=== PATIENT | male | born 1940 | race Caucasian/White ===

== ENCOUNTER 2016-04-14 19:56 | Inpatient (IN) | payer OTHER ==
[~2016-04-14] VITALS: Ht 175.3 cm; Wt 74.8 kg
[~2016-04-14 19:56] MED LIST: XALATAN 0.50 GTT/1 B OPH
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
--- NOTE | 2016-04-14 20:09 | NUR ---
Informed waiting has been performed.
--- NOTE | 2016-04-14 20:37 | NUR ---
PT UNDRESSED AND CHANGED INTO GOWN. PT HAD 6 LAYERS OF SWEATERS AND 4 PAIRS OF PANTS. PT ALSO HAD A ROPE AROUND HIS WAIST HOLDING NOTHING. CLOTHES WERE NO CLEAN AND HE SMELLS OF URINE. PT SKIN IS CLEAN DRY AND INTACT. HE HAS LUMPS ALL OVER HIS ARMS THAT LOOK LIKE LIPOMAS AND A BASEBALL SIZED MASS UNDER HIS LEFT AXILLA. PT ALSO HAS A PACE MAKER TO [facility].
--- NOTE | 2016-04-14 20:44 | NUR ---
STUDENT AT BEDSIDE TO EVAL PT. NO RECENT FEVERS OR COUGH.
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
--- NOTE | 2016-04-14 21:17 | NUR ---
WATTS PLACED. 500 CC'S YELLOW URINE OUT. 3 TUBES SENT TO LAB. EKG DONE AND SHOWN TO DR MANJARREZ. PT TO CT VIA STRTCHER
--- NOTE | 2016-04-14 21:50 | NUR ---
XRAY DONE. PT RETURNED TO ER ROOM 9 FROM XRAY VIA STRETCHER. BLOODS DRAWN STRAIGHT STICK:SST, LAV, BLUE, LA AND SENT TO LAB
--- NOTE | 2016-04-14 21:50 | RADIOLOGY REPORT ---
EXAMINATION: XR PORTABLE CHEST CLINICAL INFORMATION: Altered mental status. COMPARISON: 06/10/2014. TECHNIQUE: Portable AP view of the chest was obtained. FINDINGS: Lungs are hypoinflated, resulting in crowding of bronchovascular structures in the bases. There is no acute pulmonary edema, focal consolidation or pleural effusion. Cardiac silhouette is normal in size. There is a left pectoral region cardiac pacemaker/AICD with transvenous leads in stable position at the level of the right atrium and right ventricle. Thoracic aorta is calcified. The bones appear diffusely osteopenic. IMPRESSION: 1. The lungs are hypoinflated. 2. No evidence of pneumonia or congestive heart failure.
--- NOTE | 2016-04-14 21:50 | CT SCAN REPORT ---
EXAMINATION: CT HEAD WITHOUT CONTRAST CLINICAL INFORMATION: Altered mental status COMPARISON: 06/12/2011 TECHNIQUE: Contiguous axial imaging was performed from the skull base to vertex without intravenous administration of contrast. DLP: 600.71 mGy-cm FINDINGS: There is no evidence of acute intracranial hemorrhage or territorial infarction. No abnormal mass effect or midline shift is seen. Wolfe to white matter differentiation is well preserved. No extra-axial fluid collections are identified. The ventricles are normal in size. Moderate volume loss is noted. There is mild periventricular white matter hypoattenuation consistent with chronic small vessel ischemic disease. The osseous structures and soft tissues are normal. The mastoid air cells and visualized portions of the paranasal sinuses are well aerated. IMPRESSION: No acute intracranial pathology. Chronic small vessel ischemic disease and volume loss.
[2016-04-14 21:53] LABS: ABSOLUTE BASOPHIL COUNT 0 /CUMM (0.0-0.2); ABSOLUTE EOSINOPHIL COUNT 0.2 /CUMM (0.0-0.7); ABSOLUTE GRANULOCYTE CT 2.9 /CUMM (1.4-6.5); ABSOLUTE LYMPH COUNT 0.8 /CUMM (1.2-3.4); ABSOLUTE MONOCYTE COUNT 0.6 /CUMM (0.10-0.60); EOSINOPHIL % 3.7 % (0-5); GRANULOCYTE % 64.4 % (42.2-75.2); HEMATOCRIT 32.8 % (42-52); MEAN CORPUSCULAR HGB 31.2 PG (27.0-31.0); MEAN CORPUSCULAR HGB CONC 33.6 G/DL (33.0-37.0); MEAN CORPUSCULAR VOLUME 92.9 FL (80.0-94.0); PLATELET COUNT 198 /CUMM (130-400); RBC DISTRIBUTION WIDTH 14.4 % (11.5-14.5); RED BLOOD CELL CT 3.53 /CUMM (4.70-6.10); WHITE BLOOD CELL COUNT 4.6 /CUMM (4.8-10.8)
--- NOTE | 2016-04-14 23:00 | NUR ---
PT SLEEPING. FAMILY LEFT FOR HAME AT THIS TIME. PER RHINA UREÑA, PT TO BE CASE MANAGEMENT FOLLOW UP IN AM
--- NOTE | 2016-04-15 01:45 | NUR ---
PT AWAKE. CONVERSIVE, SOME MAURITIAN AND SOME IN [facility]ER.
--- NOTE | 2016-04-15 08:07 | NUR ---
PT SLEPT WELL, EASILY AROUSABLE THIS AM, PT HUNGRY, DR MACKAY AWARE-TO ORDER DIET.
--- NOTE | 2016-04-15 08:43 | NUR ---
REGULAR DIET GIVEN, PT FEEDING SELF WITHOUT DIFFICULTY AT THIS TIME.
--- NOTE | 2016-04-15 09:19 | NUR ---
PT ATE 100% OF BREAKFAST, FAMILY NOW AT BEDSIDE.
--- NOTE | 2016-04-15 10:11 | NUR ---
NIECE ASKING FOR CONTINUING CARE, WHO WON'T BE IN UNTIL 11AM-12NOON TODAY, FAMILY UPDATED, PER JUN AND [id number] "WE ARE GOING AWAY FOR THE DAY AND WON'T BE BACK UNTIL ABOUT 10PM TONCHARO", PHONE FOR LOS MAR [phone].
--- NOTE | 2016-04-15 11:12 | NUR ---
PHYSICAL THERAPY IN TO EVAL AT THIS TIME.
--- NOTE | 2016-04-15 11:45 | NUR ---
3/4 CASE MGMT- AWAITING PHYSICAL THERAPY NOTE- PAGED AWAITING RETURN CALL BACK.
--- NOTE | 2016-04-15 12:00 | NUR ---
3/4 CASE MGMT PAGED PT AGAIN AWAITING RETURN CALL BACK STILL NO PT NOTE.
--- NOTE | 2016-04-15 12:06 | NUR ---
3/4 CASE MGMT- CALL PLACED TO [employer] MESSAGE LEFT TO OPEN CASE AND ALSO CALL PLACED TO ALBERTO RAUSCH AT [employer] AND MESSAGE LEFT TO OPEN CASE, STILL AWAITING PT NOTES TO FAX TO [employer] NO NOTES IN YET BY PT. ANOTHER PAGE PLACED TO PT AWAITING TITO CALL BACK.
--- NOTE | 2016-04-15 12:53 | NUR ---
3/4 CASE MGMT- ALL CLINICAL FAXED TO [employer] WITH CONFIRMATION.
--- NOTE | 2016-04-15 13:57 | NUR ---
PT TRANSFERRED FROM STRETCHER TO A HOSPITAL BED.
--- NOTE | 2016-04-15 14:22 | NUR ---
3 CASE MGMT- CALL PLACED TO PT NIECE ISABELA WHOM STATES AT THIS TIME THEY DON'T HAVE CHOICES AND WONT BE ABLE TO BE HERE TODAY BUT WILL BE IN TOMORROW MORNING AND WILL DECIDE ON CHOICES FOR FACILITIES TOMORROW MORNING. PT FAMILY UPDATED THAT EVERYTHING WAS FAXED TO INSURANCE COMPANY AND ATTEMPTED CONTACTING AND AWAITING RETURN CALL BACK FROM INSURANCE COMPANY TO START AUTH PROCESS. CASE MGMT ELISABET CONTINUE TO FOLLOW.
--- NOTE | 2016-04-15 14:28 | NUR ---
PT RESTING COMFORTABLY ON HOSPITAL BED AT THIS TIME. NO COMPLAINTS AT PRESENT. DIET ORDERED FOR LUNCH.
--- NOTE | 2016-04-15 14:30 | NUR ---
ORDER A LUNCH TRAY
--- NOTE | 2016-04-15 14:48 | NUR ---
3/4 CASE MGMT- CASE MGMT BROCHURE AND FACILTIY CHOICES LEFT ON BED SIDE TABLE FOR PT FAMILY FOR TOMORROW MORNING. CASE MGMT WILL CONTINEUT TO FOLLOW. [facility] DONE AND PENDING ATTESTATION FAXED WITH CONFIRMATION.
--- NOTE | 2016-04-15 15:24 | NUR ---
ASSUMING CARE OF PT
--- NOTE | 2016-04-15 15:30 | NUR ---
3/4 CASE MGMT- ATTEMPTED CONTACTING [facility] MESSAGE LEFT AWAITING RETURN PHONE CALL.
--- NOTE | 2016-04-15 19:03 | NUR ---
PT FIGITING WITH BLANKETS AND WATTS. 1MG ATIVAN AND 1MG RISPERIDONE GIVEN TO PT
--- NOTE | 2016-04-15 23:00 | NUR ---
THIS RN WAS CALLED INTO ROOM WITH MULTIPLE OTHER STAFF MEMEBERS BECAUSE PT WAS ATTEMPTING TO GET OUT OF BED. THIS RN AND MULTIPLE STAFF MEMEBERS/SECURITY ASSISTED PT IN BED.
--- NOTE | 2016-04-15 23:15 | NUR ---
DR MITTAL INFORMED.
--- NOTE | 2016-04-15 23:25 | NUR ---
PT MEDICATED WITH 1MG ATIVAN IM TO THE LEFT ARM.
--- NOTE | 2016-04-16 00:08 | NUR ---
PT TRYING TO AMBULATE OUT OF BED AGAIN, DR MITTAL INFORMED AND 25MG BENADRYL IM GIVEN IN RIGHT BUTT CHEEK.
--- NOTE | 2016-04-16 01:21 | NUR ---
PT RESTING IN RM WITH RR, PT STILL ATTEMPTING TO CLIMB OUT OF BED. WILL CONTINUE TO MONITOR
--- NOTE | 2016-04-16 04:09 | NUR ---
PT MEDICATED WITH 0.5MG RISPERDONE PER EMAR.
--- NOTE | 2016-04-16 04:28 | NUR ---
PT BECOMING AGGRESSIVE TOWARDS STAFF.
--- NOTE | 2016-04-16 05:29 | NUR ---
PT MEDICATED WITH 2MG IM ATIVAN IN LEFT DORSIGLUTEAL PER EMAR FOR BEING AGGRESSIVE.
--- NOTE | 2016-04-16 06:28 | NUR ---
PT SLEEPING ON HOSPITAL BED WITH RR, WILL CONTINUE TO MONITOR
--- NOTE | 2016-04-16 07:40 | NUR ---
PT SLEEPING WHEN THIS NURSE ENTERED ROOM , OPENS EYES ON SLIGHT TOUCH, PT INC OF URINE , ADLS PROVIDED AND PT REPOSITIONED UP IN BED .
--- NOTE | 2016-04-16 08:44 | NUR ---
3 BELONGINGS BAGS LOCKED IN CLOSET BY SILVIA TORREZ.
--- NOTE | 2016-04-16 09:35 | NUR ---
PT NOTED TO BE SLEEPING AT THIS TIME, AWAKE TO [facility] STIMULI, INC CARE PROVIDED. PT WAITING ON CASE MANAGEMENT PLACEMENT
--- NOTE | 2016-04-16 10:08 | NUR ---
PTS DAUGHTER AT BEDSIDE AT THIS TIME, STATES THAT CASE MANAGEMENT TOLD HER TO [facility] [place] [facility] 3 FACILITIES OF HER CHOICE THAT SHE PREFERS PT TO GO TO. DAUGHTER STATES TO THIS NURSE SHE WILL [facility] BUT ANY FACILITY WILL BE FINE. PT CONTINUES TO SLEEP REGULAR RESP RATE NOTED AT THIS TIME
--- NOTE | 2016-04-16 11:36 | NUR ---
3/5 CASE MGMT- CHOICES FROM PT NIECE FIRST CHOICE [facility], SECOND CHOICE [facility], THIRD CHOICE [facility] BUT STATES IN NOTE IF ANY PLACE HAS AN OPENING. CASE MGMT WILL CONTINUE TO FOLLOW.
--- NOTE | 2016-04-16 12:26 | NUR ---
PT REMAINES ON HOSPITAL BED, NO ACUTE DISTRESS NOTED, PT CONFUSED, PULLING ON O2SAT AND BP WIRES WHEN ATTEMPTED VS, VSS. SITTER AT BEDSIDE.
--- NOTE | 2016-04-16 13:04 | NUR ---
PT BECAME AGITATED, ATTEMPTED TO GET OUT OF BED, SPITTING, KICKING STUFF. MD CODIE MADE AWARE. PT MEDICATED WITH ZYPREXA AND ATIVAN PER EMAR WITH HELP OF SECURITY. SITTER AT BEDSIDE.
--- NOTE | 2016-04-16 13:26 | NUR ---
3/5 CASE MGMT- CALL PLACED TO [facility] AND MESSAGE LEFT AWAITING RETURN CALL BACK. CALL PLACED TO [facility] MESSAGE LEFT AWAITING RETURN CALL BACK. CASE MGMT WILL CONTINUE TO FOLLOW.
--- NOTE | 2016-04-16 13:41 | NUR ---
PT RESTING ON HOSPITAL BED, CALM AT THIS TIME, NO ACUTE DISTRESS NOTED. SITTER AT BEDSIDE.
--- NOTE | 2016-04-16 13:53 | NUR ---
04/16 CASE MGMT- SPOKE WITH PT NIECE ISABELA AND INFORMED THAT PT WILL MOST LIKELY NEED TREE -PSYCH PLACEMENT AND HAS BEEN NON DIRECTABLE AND WILL MOST LIKELY NEED MEDICATION MANAGEMENT AND MAY TAKE SOME TIME TO FIND A TREE PSYCH BED FOR PT. ISABELA MADE AWARE THAT WE WILL SEND CLINICAL TO INSURANCE COMPANY TO SEE IF THEY WILL APPROVE THE HOSPTIAL STAY BUT IF NOT THEN THE PT WILL BE HELD LIABLE FOR HOSPITAL STAY UNTIL PLACEMENT OCCURS. ISABELA AWARE OF ISSUE OF DENIAL AND IN AGREEMENT WITH PLAN AND STATES IF SHE COMES TODAY SHE WILL SIGN DENIAL BUT IS AWARE PT IS BEING ISSUED DENIAL LETTER FOR HOSPITAL STAY. DR MACKAY AWARE.
--- NOTE | 2016-04-16 15:11 | NUR ---
PT SLEEPING ON HOSPITAL BED, RR16, O2SAT 99% ON RA, NO ACUTE DISTRESS NOTED. SITTER AT BEDSIDE.
--- NOTE | 2016-04-16 15:22 | History & Physical ---
MILLY DEVINE 04/16/16 1521: General Information and HPI MD Statement: I have seen and personally examined VIJAY MEEKS and documented this H&P. The patient is a 75 year old M who presented with a patient stated chief complaint of [progressive confusion]. Source of Information: family, old records Exam Limitations: clinical condition History of Present Illness: Mr Betancourt is a 75-year-old gentleman with a PMH of Alzheimer's disease, S/P pacemaker implantation, left axillary mass S/P resection in 2013, gastric erosion/mild esophagitis on EGD in 2011, recurrent: CHRIS/PE anterior resection was brought in by family members out of concern for progressive confusion. Information was obtained from the patient's niece. He has been noted to have progressive confusion over the past few weeks. There have been no recent illnesses, changes in medication. His niece mentions that yesterday evening he was significantly disoriented, exhibited visual hallucinations (noticed some people in his house). He followed her outside and was difficult to reorient for few hours. If primary concern is that he would wander out and is thus a danger to himself at this time. His in October 2014 and has since been living on his own. He has been independent with feeding himself but over the past 2 months has had no decline in his personal hygiene and clothing. ROS: Family members deny any noticeable complaints of fever, chills, chest pain, shortness of breath, changes in urinary/bowel habits, changes in appetite. 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 EENTM: Reports: no symptoms. Cardiovascular: Reports: no symptoms. Respiratory: Reports: no symptoms. GI: Reports: no symptoms. Genitourinary: Reports: no symptoms. Musculoskeletal: Reports: no symptoms. Skin: Reports: no symptoms. Neurological/Psychological: Reports: see HPI. Exam & Diagnostic Data Last 24 Hrs of Vital Signs/I&O Vital Signs Date Time Temp Pulse Resp B/P Pulse O2 O2 Flow FiO2 Ox Delivery Rate 04/16 1701 96.8 75 18 170/90 99 Room Air 04/16 1634 156/92 03/ 1624 96.0 74 18 142/105 100 Room Air 04/16 1427 96.1 76 18 173/103 96 Room Air 04/16 1225 97.9 72 16 116/75 97 Room Air 04/16 0840 76 18 159/87 97 Room Air / 1954 98.3 67 18 147/91 97 Room Air Intake & Output / 1600 03/05 0800 03/ 0000 Intake Total Output Total Balance Number 1 Bowel Movements Physical Exam General Appearance Pt is asleep in bed, easily arousable to tactile stimulation but unable to follow verball commands Skin No Rashes, No Breakdown HEENT Mucous membranes appear dry Cardiovascular Regular Rate, Normal S1, Normal S2 Lungs Normal Air Movement Abdomen Normal Bowel Sounds, Soft, No Tenderness Neurological Unable to complete a neuro exam at this time due to clinical condition. Spontaneous movement of all extremities. Pupils reactive to light BL Extremities No Edema, Normal Pulses Vascular Pulses Symmetrical Diagnostic Data EKG Results HR 75, AV dual paced complexes with some inhibition. NM interval 188. QTC 514 CXR Results The lungs are hypoinflated. No evidence of pneumonia or congestive heart failure. Other Results Head CT: No acute intracranial pathology. Chronic small vessel ischemic disease and volume loss. Assessment/Plan Assessment: 75-year-old gentleman with a PMH of Alzheimer's disease, S/P pacemaker implantation, left axillary mass S/P resection in 2013, gastric erosion/mild esophagitis on EGD in 2011, recurrent: CHRIS/PE anterior resection was brought in by family members out of concern for progressive confusion. VS on admission: BP , 147/91, HR 67, RR 18, SPO2 97% on RA, T 98.3 Pertinent labs: WBC 4.6, H&H 11.0/32.8, platelets 192, sodium 140, chloride 107, BUN/CR/2.6, glucose 101 CT head and CXR as indicated above Problem list: 1. Progressive dementia 2. Delirium 3. CKD Plan: * Admit to general medicine floor * Follow-up UA and culture to rule out UTI * Follow-up TFTs, vitamin D and B12 * Family member reports a bottle of meclizine that was found on unclear how much was in it previously. Will monitor for symptomatic improvement, start the patient on NS at 75 mL an hour 1 * MMSE in the a.m. Patient may benefit on trial Aricept or Namenda * Would avoid benzodiazepines in setting of potential paradoxical agitation * Geriatrics follow-up * Regular diet after swallow evaluation * DVT prophylaxis heparin 5000 units subcutaneous * CODE STATUS: DNR/DNI Family desires long-term placement in the setting of risk to himself and elopement. We'll discuss options with case management in the a.m. As Ranked By This Provider Problem List: 1. Dementia 2. Delirium 3. CKD (chronic kidney disease) Core Measures/Miscellaneous Acute Coronary Syndrome ACS Diagnosis: No Cerebrovascular Accident CVA/TIA Diagnosis: No Congestive Heart Failure CHF Diagnosis: No Venous Thromboembolism VTE Risk Factors: Age > 40 No Mech VTE prophylaxis d/t: No contraindications No VTE Pharm Prophylaxis d/t: No contraindications VTE Diagnosis: No VTE Type: NONE VTE Confirmed by (Test): NONE Severe Sepsis Severe Sepsis Present: No Septic Shock Septic Shock Present: No Miscellaneous Documentation Attending Case Discussed With: VINEET HOWELL MD Primary Care Physician: DEDE LEBRON MD Patient sees these Specialists NA Level of Patient Care: General Medicine Resident Review Statement Resident Statement: examined this patient, discussed with business analyst intern, agreed with business analyst intern, discussed with family, reviewed EMR data (avail), discussed with nursing , reviewed images VINEET HOWELL MD 04/16/161950: Attending Review Statement Attending Statement Attending MD Statement: examined this patient, discuss w/resident/PA/PATTERN TECHNICIAN, agreed w/resident/PA/PATTERN TECHNICIAN, reviewed EMR data (avail) Attending Assessment/Plan: 75M PMH dementia, pacemaker placement presents with progressively worsening dementia. Patient has been more forgetful, confused, agitated, with irregular behavior. He is unable to provide much history due to this. Family has been caring for him but is now concerned with his behavior. No evidence of infection. Stable vitals, labs reviewed. Plan - Admit to general medicine - Check UA, TSH, B12, Vitamin D - Review home medications - Psychiatry evaluation - Eventual technician terminal and repeater placement - DVT PPx
--- NOTE | 2016-04-16 16:11 | NUR ---
PT ASSINGED TO 227-1
--- NOTE | 2016-04-16 16:39 | NUR ---
REPORT CALLED TO [facility] TO [facility]. [facility]RI[facility] CALLED FOR TRANSPORTATION.
--- NOTE | 2016-04-16 16:40 | NUR ---
PER MD MILLY PT CAN GO TO [facility] WITHOUT IV.
--- NOTE | 2016-04-16 17:00 | NUR ---
PT DOES NOT HAVE IV ACCESS. NURSING TAMPING MACHINE OPERATOR AWARE, CHARGE NURSE AWARE, BUS REPAIR SUPERVISOR AWARE. WILL CONTINUE TO MONITOR.
[2016-04-16 17:01] VITALS: BP 170/90
--- NOTE | 2016-04-16 17:06 | NUR ---
PT ARRIVED TO ROOM 227 AT 1657 VIA HOSP BED FROM ER. UPON ARRIVAL, PT SLEEPY BUT AROUSABLE TO STIMULI. UNABLE TO ANSWER ANY ADMISSION QUESTIONS. FLACC SCORE 0. BP 170/90 MANUALLY. OTHERWISE, VSS. PT HAS NO IV ACCESS, PERINATAL TECH AL AWARE. WATTS IN PLACE DRAINING CLEAR & YELLOW URINE. PATIENT SAFETY MONITOR AT THE BEDSIDE. PT ON RA. LUNGS CLEAR. SKIN INTACT. WILL CONTINUE TO MONITOR.
--- NOTE | 2016-04-16 17:47 | NUR ---
ORDER PLACED FOR PT TO BE STARTED ON NS. MOD NOTIFIED THAT PT DOES NOT CURRENTLY HAVE AN IV. MEDICAL RESTRAINTS ORDERED FOR PT TO PREVENT PULLING & REMOVING LINES AT 04/16/16 1742. RESTRAINTS APPLIED. PT RESTING IN BED. SITTER REMAINS AT BEDSIDE. WILL CONTINUE TO MONITOR.
--- NOTE | 2016-04-16 18:19 | NUR ---
PT BP MANUALLY 172/98 LYING. PT IN NO APPARENT DISTRESS, SLEEPING. IMAGING ANALYST KRITHY AWARE. NO NEW ORDERS AT THIS TIME. WILL CONTINUE TO MONITOR.
--- NOTE | 2016-04-16 19:56 | Admission Certification ---
Admission Certification Certification Statement - As attending physician, I certify that at the time of - admission, based on clinical presentation, severity of - symptoms, need for further diagnostic testing and - therapeutic interventions, and risk of adverse outcomes - without in-hospital treatment, in my clinical assessment, - this patient requires an acute hospital stay for a minimum - of two nights or longer. I have also considered psychsocial - factors such as support system, advanced age, financial - issues, cognitive issues, and failed out-patient treatments, - past re-admission history, safety of patient, and lack of - compliance as applicable. Specific rationale supporting this admission is: Delirium, dementia, family unable to care for
[2016-04-16 23:44] VITALS: BP 140/84
[2016-04-17 06:36] VITALS: BP 144/82
--- NOTE | 2016-04-17 07:01 | Discharge Summary ---
See Addendum Visit Information Visit Dates Admission Date: 04/16/16 Discharge Date: 05/03/16 Hospital Course Course Attending Physician: DEDE LEBRON MD Primary Care Physician: DEDE LEBRON MD. Hospital Course: Mr Betancourt is a 75-year-old gentleman with a PMH of Alzheimer's disease, S/P pacemaker implantation, left axillary mass S/P resection in 2013, gastric erosion/mild esophagitis on EGD in 2011, recurrent: CHRIS/PE anterior resection was brought in by family members out of concern for progressive confusion. The past few months he has been noted to have progressive decline in his memory exhibiting intermittent episodes of confusion that have escalated to the point of him walking outside without regard for his own awareness or safety, having visual and auditory hallucinations. Since his in October 2014 he has been living on his own but his niece who is his POA reports a progressive decline in his ability to care for himself (hygiene and feeding). There is no indication of recent fever, chills, changes in medication, sick contacts. VS on admission: BP , 147/91, HR 67, RR 18, SPO2 97% on RA, T 98.3 Pertinent labs: WBC 4.6, H&H 11.0/32.8, platelets 192, sodium 140, chloride 107, BUN/CR/2.6, glucose 101 EKG Results HR 75, AV dual paced complexes with some inhibition. SD interval 188. QTC 514 CXR Results The lungs are hypoinflated. No evidence of pneumonia or congestive heart failure. Other Results Head CT: No acute intracranial pathology. Chronic small vessel ischemic disease and volume loss. The patient was admitted to the general medicine floor for management of the following problems. 1. Progressive dementia 2. Delirium 3. CKD Hospital course: 1. Progressive dementia: The patient was assessed by our inpatient psychiatrist with recommendations not to disturb the patient during sleep hours with nursing and medical procedure. To administer all medications at one time to void sleep disturbances. Reduce light at night. Ensure that the patient was using his sensory aids every day. Patient's POA requests assistance with long-term placement. Currently working with case management team with assistance on placement. 2. Delirium Urinalysis had no evidence of infection. Thyroid function studies were within normal limits including all other electrolytes. Intermittent episodes of agitation requiring soft restraints, Seroquel and olanzapine. Benzos were avoided in the setting of potential paradoxical agitation. Patient was ruled out for any acute neurological process by being evaluated by a neurologist. Zyprexa was continued when necessary for agitation as per psychiatry recommendations. Vitamin D supplementation was continued. Patient was maintaining in a net bed and a sitter. 3. CKD Patient was found to have elevated Cr and hypernatremia on admission. Etiologies could be dehydration as well as rhabdomyolysis as the patient was agitated and was put on restraints. CK was elevated to 845. Patient received half normal saline IV, repeated CK is down to 364. Patient has been drinking adequately orallyand is off IV fluids. Hypernatremia has resolved, creatinine is back to baseline. Regular diet DVT prophylaxis heparin 5000 units subcutaneous CODE STATUS: DNR/DNI Allergies: Coded Allergies: methylprednisolone (NOTED ALLERGY TO STEROIDS - FAMILY UNAWARE OF ALLERGY ) prednisone (NOTED ALLERGY TO STEROIDS- FAMILY IS UNAWARE OF ALLERGY 04/14/16) Disposition Summary Disposition Principal Diagnosis: Progressive dementia Additional Diagnosis: Delirium Chronic renal failure Discharge Disposition: SNF Discharge Instructions General Discharge Information Code Status: Do Not Resucitate/Intubat Patient's Diet: Regular diet Patient's Activity: As tolerated Follow-Up Instructions/Appts: Plan for long-term placement at this time. Follow-up with PCP and geriatric psychiatrist as directed Medications at Discharge Discharge Medications: Start taking the following new medications: Olanzapine (Olanzapine) 2.5 MG TABLET 2.5 Milligram ORAL DAILY Days = 30 No Refills Comments: Last Taken:05/03/16 Time:8:47A.M Olanzapine (Olanzapine) 2.5 MG TABLET 2.5 Milligram ORAL Every 12 hours as needed as needed for AGITAT/ HALLUCINATION/IRRITABIL Days = 30 No Refills Comments: Last Taken:05/01/16 Time:1:11A.M Cholecalciferol (Vitamin D3) 1,000 UNIT TABLET 1,000 International Unit ORAL DAILY Days = 30 No Refills Comments: Last Taken:05/03/16 Time:8:47A.M Copies To: VI PATEL,DEDE Alcala
--- NOTE | 2016-04-17 07:09 | PN- Housestaff ---
See Addendum Subjective Follow-up For: Increased confusion and altered mental status Subjective: I saw and examined the patient this am, he is lying in bed with eyes closed and is sleeping, he has soft restraints on both wrists. patient opes eyes when I call his name, he responds with one word which is hard to understand, his mouth is wide open. Does not appear in respiratory distress or feverish. Does not communicate and does not follow directions. Review of Systems Constitutional: Reports: see HPI (not communicating). Objective Last 24 Hrs of Vital Signs/I&O Vital Signs Date Time Temp Pulse Resp B/P Pulse O2 O2 Flow FiO2 Ox Delivery Rate 04/17 0636 95.9 90 20 144/82 98 Room Air 04/17 0000 100 Room Air 04/16 2344 97.8 78 18 140/84 100 Room Air 04/16 1701 96.8 75 18 170/90 99 Room Air 04/16 1634 156/92 04/16 1624 96.0 74 18 142/105 100 Room Air 04/16 1427 96.1 76 18 173/103 96 Room Air 04/16 1225 97.9 72 16 116/75 97 Room Air 04/16 0840 76 18 159/87 97 Room Air Intake & Output 04/17 1600 04/17 0800 04/17 0000 Intake Total 600 690 Output Total 300 700 Balance 300 -10 Intake, IV 600 450 Intake, Oral 0 240 Number 0 Bowel Movements Output, Urine 300 700 Patient 74.843 kg Weight Physical Exam General Appearance: Mild Distress, not alert and not oriented, appears in mild distress (is tremulous and has soft restraints on both wrists) Skin: has several soft tissue masses under the skin on both arms, mobile, circular with regular margins. skin is erythematous on both elbows. HEENT: Atraumatic Neck: Supple Cardiovascular: Normal S1, Normal S2, No Murmurs Lungs: Clear to Auscultation Abdomen: Normal Bowel Sounds, Soft Neurological: not alert and not oriented, does not follow directions, moves arms and extremities , there is no laterality in movement Extremities: No Edema, Normal Pulses Current Medications: Current Medications Sig/Kim Start time Last Medication Dose Route Stop Time Status Admin Acetaminophen 650 MG Q6P PRN 04/17 0745 AC PO Lorazepam 1 MG ONCE ONE 04/16 1300 DC 04/16 IM 04/16 1301 1304 Lorazepam 0 .STK-MED ONE 04/16 1254 DC .ROUTE Lorazepam 2 MG ONCE ONE 04/16 1245 DC PO 04/16 1246 Lorazepam 0 .STK-MED ONE 04/16 1243 DC PO Olanzapine 5 MG ONCE ONE 04/16 1300 DC 04/16 IM 04/16 1301 1304 Olanzapine 0 .STK-MED ONE 04/16 1253 DC IM Oxycodone/ 1 TAB Q6P PRN 04/17 0745 AC Acetaminophen PO Oxycodone/ 2 TAB Q6P PRN 04/17 0745 AC Acetaminophen PO Risperidone 1 MG ONCE ONE 04/16 1245 DC PO 04/16 1246 Sodium Chloride 1,000 ML Q13H 04/16 1745 DC 04/16 IV 04/17 0644 1809 Last 24 Hrs of Lab/Dyllan Results Last 24 Hrs of Labs/Mics: Laboratory Tests 04/17/16 0640: Anion Gap 12, Estimated GFR 28 L, BUN/Creatinine Ratio 15.2, CBC w Diff Pending , WBC Pending, RBC Pending, Hgb Pending, Hct Pending, MCV Pending, MCH Pending, RDW Pending, Plt Count Pending, MPV Pending, PUBS MCHC Pending Assessment/Plan Assessment: 75-year-old gentleman with a PMH of Alzheimer's disease, S/P pacemaker implantation, left axillary mass S/P resection in 2013, gastric erosion/mild esophagitis on EGD in 2011, recurrent: CHRIS/PE anterior resection was brought in by family members out of concern for progressive confusion. VS on admission: BP , 147/91, HR 67, RR 18, SPO2 97% on RA, T 98.3 Pertinent labs: WBC 4.6, H&H 11.0/32.8, platelets 192, sodium 140, chloride 107, BUN/CR/2.6, glucose 101 CT head and CXR as indicated above Problem list and plan: Progressive dementia and delirium Patient has lost the ability to speak in [place] and now only speaks Khmer. Family memebers are able to communicate with him. * Would avoid benzodiazepines in setting of potential paradoxical agitation * Geriatrics follow-up * Patient may benefit a trial of Aricept or Namenda * Neuro consult in am * Psych eval. * We held off on Zyprexa due to prologed QTc, Dr. Ballesteros is aware. Family member reported a bottle of meclizine that was found on unclear how much was in it previously. Started the patient on NS at 75 ml/hour UA: clear with few RBC and WBC. UC: NG after 2 days. TFTs WNL, vitamin D3 low and B12 came back high. * Vitamin D supplementation * f/u RPR, lyme titer CKD stable, will monitor * BEP in am Regular diet DVT prophylaxis heparin 5000 units subcutaneous CODE STATUS: DNR/DNI Family desires long-term placement in the setting of risk to himself and elopement. We'll discuss options with case management in the a.m. Problem List: 1. CKD (chronic kidney disease) 2. Dementia 3. Delirium Pain Ratin Pain Location: not obtainable Pain Goal: Pain 4 or less Pain Plan: tylenol and percocet Tomorrow's Labs & Rationales: CBC (anemia), BEP (CKD)
--- NOTE | 2016-04-17 08:30 | NUR ---
BI LATERAL WRIST RESTRAINTS REMOVED. PATIENT NO LONG PULLING AT IV LINE. PATIENT SAFETY MONITOR AT BESIDE FOR SAFETY PURPOSES.
[2016-04-17 08:54] LABS: ABSOLUTE BASOPHIL COUNT 0 /CUMM (0.0-0.2); ABSOLUTE EOSINOPHIL COUNT 0.1 /CUMM (0.0-0.7); ABSOLUTE GRANULOCYTE CT 6.6 /CUMM (1.4-6.5); ABSOLUTE LYMPH COUNT 0.4 /CUMM (1.2-3.4); EOSINOPHIL % 0.8 % (0-5); MEAN CORPUSCULAR HGB 31.1 PG (27.0-31.0); MEAN PLATELET VOLUME 8.7 FL (7.4-10.4)
[2016-04-17 09:10] LABS: ABSOLUTE MONOCYTE COUNT 0.6 /CUMM (0.10-0.60); BASOPHIL % 0.4 % (0.0-2.0); MEAN CORPUSCULAR HGB CONC 33.3 G/DL (33.0-37.0); MEAN CORPUSCULAR VOLUME 93.2 FL (80.0-94.0); RBC DISTRIBUTION WIDTH 14.7 % (11.5-14.5); RED BLOOD CELL CT 3.65 /CUMM (4.70-6.10)
[2016-04-17 09:19] LABS: WHITE BLOOD CELL COUNT 7.6 /CUMM (4.8-10.8)
[2016-04-17 09:38] LABS: PLATELET COUNT 195 /CUMM (130-400)
[2016-04-17 09:39] LABS: GRANULOCYTE % 86.2 % (42.2-75.2)
--- NOTE | 2016-04-17 14:03 | PN- Pulmonary ---
Subjective HPI/Critical Care Issues: Does not appear in respiratory distress or feverish. Awake and confused Review of Systems Constitutional: Reports: see HPI (not communicating). Objective Current Medications: Current Medications Sig/Kim Start time Last Medication Dose Route Stop Time Status Admin Acetaminophen 650 MG Q6P PRN 04/17 0645 AC PO Oxycodone/ 1 TAB Q6P PRN 04/17 0645 AC Acetaminophen PO Oxycodone/ 2 TAB Q6P PRN 04/17 0645 AC Acetaminophen PO Sodium Chloride 1,000 ML Q13H 04/16 1745 DC 04/16 IV 04/17 0644 1809 Vital Signs & I&O Last 24 Hrs of Vitals and I&O: Vital Signs Date Time Temp Pulse Resp B/P Pulse O2 O2 Flow FiO2 Ox Delivery Rate 04/18 635 95.9 90 20 144/82 98 Room Air 04/17 0000 100 Room Air 04/16 2344 97.8 78 18 140/84 100 Room Air / 1701 96.8 75 18 170/90 99 Room Air 04/16 1634 156/92 04/16 1624 96.0 74 18 142/105 100 Room Air / 1427 96.1 76 18 173/103 96 Room Air Intake & Output 04/17 1600 /06 0800 / 0000 Intake Total 600 690 Output Total 300 700 Balance 300 -10 Intake, IV 600 450 Intake, Oral 0 240 Number 0 Bowel Movements Output, Urine 300 700 Patient 165 lb Weight Impression/Plan Impression/Plan Impression/Plan: Physical Exam General Appearance: Mild Distress, alert and not oriented, Skin: has several soft tissue masses under the skin on both arms, mobile, circular with regular margins. skin is erythematous on both elbows. 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 VS on admission: BP , 147/91, HR 67, RR 18, SPO2 97% on RA, T 98.3 Pertinent labs: WBC 4.6, H&H 11.0/32.8, platelets 192, sodium 140, chloride 107, BUN/CR/2.6, glucose 101 CT head and CXR as indicated above Problem list: 1. Progressive dementia 2. Delirium 3. CKD stage 4 stable 4. Postural hypotension stable 5. S/p remote ppm 6. Delirium REC Psych to see Check lyme titres and rpr Have neuro to see him in am needs placement DC all narcotics Keep mag more than 2 Zyprexa 2.5 po q 8 hrs prn Check qtc in am Will follow Discussed with family
[2016-04-17 14:11] VITALS: BP 142/80
--- NOTE | 2016-04-17 19:06 | Cons- Psychiatry ---
See Addendum Psychiatric Consult Date of Consult: 04/17/16 Reason for Consult: "Dementia, progressive. Needs geriatric psych evaluation" [Note: Our service provised a limited geriatric psychiatry evaluation] History of Present Illness: This is a 75-year-old man who presented to the ED on 04/14/2016 at 2009 with his niece and [id number] with a chief complaint of worsening confusion. The patient lives alone, and is visited by his family frequently. He is a [place] speaker, but understands and speaks [place]. Patient has no known prior psychiatric history. Collateral from family: Per discussion with Alexus, his niece and power of banking attorney today, the patient's presentation is typical of his recent baseline. He does not answer the questions that are asked of him in either [place] or Iraqi. Lately, at home he has been describing chores that he [place] do [place] the farm, which date back to when he was a child. She thinks that he is seeing things that do not exist, and talking to people who weren't there. Current EKG on 04/14/2016 shows 75 HR, A-V dual-paced complexes, QTC 514 mS From the report of the Head CT on 04/14/2016: No acute intracranial pathology. Chronic small vessel ischemic disease and volume loss. Allergies: Coded Allergies: methylprednisolone (NOTED ALLERGY TO STEROIDS - FAMILY UNAWARE OF ALLERGY ) prednisone (NOTED ALLERGY TO STEROIDS- FAMILY IS UNAWARE OF ALLERGY 04/14/16) Current Medications: Current Medications Sig/Kim Start time Last Medication Dose Route Stop Time Status Admin Acetaminophen 650 MG Q6P PRN 04/17 0745 AC PO Olanzapine 2.5 MG Q8 04/17 2200 CAN PO Oxycodone/ 1 TAB Q6P PRN 04/17 0745 AC Acetaminophen PO Oxycodone/ 2 TAB Q6P PRN 04/17 0745 AC Acetaminophen PO Patient Medication 1 ED ONE ONE 04/17 1415 DC Teaching ED 04/17 1416 Sodium Chloride 1,000 ML Q13H 04/16 1745 DC 04/16 IV 04/17 0644 1809 Past History Past Medical History Neurological: Alzheimer's disease, dementia EENT: glaucoma Cardiovascular: PACEMAKER Respiratory: NONE Gastrointestinal: NONE Hepatic: NONE Renal: URINARY RETENTION Musculoskeletal: NONE Psychiatric: NONE Endocrine: NONE Blood Disorders: LYME DISEASE Cancer(s): COLON CA 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 For any question asked in [place], the patient answers tangentially, perseverating on talking about his hips. Many answers are nonsense: Asked what his name is, he states, "I had my robe on both sides." There is considerable delay before the patient answers, while he looks about the room. He does not answer questions about auditory or visual hallucinations, but appears to be referencing and internal source. He states, "I like animal." Lab Results: Laboratory Tests 04/17 04/17 0640 0600 Chemistry Sodium (137 - 145 mmol/L) 142 Potassium (3.5 - 5.1 mmol/L) 4.8 Chloride (98 - 107 mmol/L) 109 H Carbon Dioxide (22 - 30 mmol/L) 20 L Anion Gap (5 - 16) 12 BUN (9 - 20 mg/dL) 35 H Creatinine (0.7 - 1.2 mg/dL) 2.3 H Estimated GFR (>60 ml/min) 28 L BUN/Creatinine Ratio (7 - 25 %) 15.2 Magnesium (1.6 - 2.3 mg/dL) 1.9 Hematology CBC w Diff NO MAN DIFF REQ WBC (4.8 - 10.8 /CUMM) 7.6 RBC (4.70 - 6.10 /CUMM) 3.65 L Hgb (14.0 - 18.0 G/DL) 11.4 L Hct (42 - 52 %) 34.0 L MCV (80.0 - 94.0 FL) 93.2 MCH (27.0 - 31.0 PG) 31.1 H RDW (11.5 - 14.5 %) 14.7 H Plt Count (130 - 400 /CUMM) 195 MPV (7.4 - 10.4 FL) 8.7 Gran % (42.2 - 75.2 %) 86.2 H Lymphocytes % (20.5 - 51.1 %) 5.3 L Monocytes % (1.7 - 9.3 %) 7.3 Eosinophils % (0 - 5 %) 0.8 Basophils % (0.0 - 2.0 %) 0.4 Absolute Granulocytes (1.4 - 6.5 /CUMM) 6.6 H Absolute Lymphocytes (1.2 - 3.4 /CUMM) 0.4 L Absolute Monocytes (0.10 - 0.60 /CUMM) 0.6 Absolute Eosinophils (0.0 - 0.7 /CUMM) 0.1 Absolute Basophils (0.0 - 0.2 /CUMM) 0 PUBS MCHC (33.0 - 37.0 G/DL) 33.3 Serology RPR Titer/FTA Pending Lyme Disease Antibody Pending Urinalysis on 04/14/2016 shows clear yellow urine, trace of protein, negative nitrite, negative leukocyte esterase, some sediment, urobilinogen 0.2, few RBCs, 1-3 WBC, rare epithelial cells, few hyaline casts. U tox on 04/14/16 was negative 04/14/16: Vitamin B12 greater than 1000, vitamin D 27.8, TSH 3.13/FT4 1.04 04/17/2016: Sodium 142, potassium 4.8, BUN 35H/creatinine 2.3H, estimated GFR 28L Diffential Diagnosis: Probable Alzheimer's dementia Rule out Lewy body disease Rule out Lyme encephalitis Impression: Per discussion with the patient's niece, Akil, today, it seems that the patient is probably close to baseline mentation. There may be some contribution from toxic or metabolic causes, and for that reason a reversible dementia screen should be completed. The patient's Lyme titer will probably be positive, but the presence of neuropathic Lyme disease may be difficult to determine. The patient has a pacemaker, and consequently his EKGs will be abnormal, with prolonged QTC's. Please ask cardiology to comment on the use of antipsychotic medications in the setting, which are known for prolonging QTC. We recommend that routine use of these medications be avoided, but may be necessary for agitation on an as-needed basis, and should preferably be given by mouth, if possible. Provisional Treatment Plan: 1. Please avoid benzodiazepines, opioid analgesics, and meds with strong anticholinergic properties as much as possible to prevent further confusion. 2. Please initiate the following nonpharmacologic interventions: -Avoid nursing and medical procedures during sleep hours whenever possible - Cluster at night interventions that must be completed as much as possible to minimize sleep disruption - Decrease noise patient area during sleeping hours - Reduce lighting at night - Ensure patient has any sensory aids close by that he regularly uses 3. Please order the following to rule out additional causes of altered mental status, if not already completed: - LFTs - CMP - UA & Culture - Thyroid panel - B12 & folate - ESR - RPR/VDRL - Lyme titer - Head CT 4. This patient is unable to safely live independently at this time, and should be referred to geriatric psychiatry hospital for stabilization, and from there should be placed in a memory/dementia long-term facility. 5. If olanzapine 2.5 mg PO every 8 hours as needed for agitation is started, please continue to monitor and replete electrolytes, in particular potassium and magnesium. Please ask cardiology to comment on the use of these medications with this patient who has a pacemaker. Thank you for asking us to participate in Kevin's care. We do not anticipate further visits. Please reconsult as needed for psychiatric matters. Nikita Bal APRN, pager [phone].
[2016-04-17 22:00] VITALS: BP 160/70
--- NOTE | 2016-04-17 22:30 | NUR ---
PT BECAME VERY AGGITATED AT [id number]. PT NOT MAKING SENSE VERBALLY. HE IS SPEAKING OTHER LANGUAGES BACK AND FORTH. HE IS COMBATIVE- TRYING TO JUMP OOB,HITTING AND KICKING CO WORKERS, THROWING THINGS, PULLING AT LINES, AND ATTEMPTING UNSAFE AMBULATION. INFORMED. ZYPREXA GIVEN AT 1942. SOFT ESTRAINTS X4 USED FORFULLING AT IV LINES. ZACH ORDERED FOR UNSAFE AMBULATION. PT CURRENTLY IN BED PULLING AT RESTRAINTS FROM TIME TO TIME-RESIDENT SERVICE COORDINATOR INFORMED. CONTINUING TO MONITOR PT.
--- NOTE | 2016-04-18 05:38 | NUR ---
PT APPEARS TO HAVE SLEPT COMFORTABLY OVERNIGHT. INCONTINENT OF STOOL AND URINE X2. SITTER AT BEDSIDE. FLACC 0. REDNESS TO L ELBOW, ELBOW ELEVATED ON PILLOW AT THIS TIME. WILL MONITOR.
[2016-04-18 06:25] VITALS: BP 178/90
--- NOTE | 2016-04-18 07:15 | PN- Housestaff ---
Subjective Follow-up For: Agitation and delirium Subjective: Patient is seen and examined at bedside, he is awake and alert, not oriented, he has been severely agitated overnight, and pulling the restraints constantly, we have ordered a net bed for the patient. Patient does not seem to be in acute distress, not appear feverish, is sitting in bed, when I called his name he smiled and said a few words not understandable , is not able to communicate and follow directions. Review of Systems Constitutional: Reports: see HPI (not obtainable due to AMS). Objective Last 24 Hrs of Vital Signs/I&O Vital Signs Date Time Temp Pulse Resp B/P Pulse O2 O2 Flow FiO2 Ox Delivery Rate 04/18 0807 Room Air Room Air 04/18 0625 97.8 65 20 178/90 96 Room Air 04/17 2200 96.9 85 20 160/70 97 04/17 1534 Room Air Room Air 04/17 1509 Room Air Room Air 04/17 1458 Room Air Room Air 04/17 1452 Room Air Room Air 04/17 1411 98.0 79 20 142/80 96 Room Air Intake & Output 04/18 1600 04/18 0800 04/18 0000 Intake Total 0 250 Output Total Balance 0 250 Intake, Oral 0 250 Number 4 2 Bowel Movements Physical Exam General Appearance: Alert, No Acute Distress Skin: No Significant Lesion HEENT: Atraumatic Neck: No JVD Cardiovascular: Regular Rate, Normal S1, Normal S2, No Murmurs Lungs: Normal Air Movement Abdomen: Soft, No Tenderness Neurological: Normal Speech, Normal Tone Extremities: Normal Pulses Vascular: Pulses Symmetrical Current Medications: Current Medications Sig/Kim Start time Last Medication Dose Route Stop Time Status Admin Acetaminophen 650 MG Q6P PRN 04/17 0745 AC PO Olanzapine 2.5 MG Q8 04/17 2199 CAN PO Olanzapine 2.5 MG ONCE ONE 04/17 193 DC 04/17 IM 04/17 193 1942 Oxycodone/ 1 TAB Q6P PRN 04/17 0745 AC 04/17 Acetaminophen PO 2121 Oxycodone/ 2 TAB Q6P PRN 04/17 0745 AC Acetaminophen PO Patient Medication 1 ED ONE ONE 04/17 1415 DC Teaching ED 04/17 1416 Last 24 Hrs of Lab/Dyllan Results Last 24 Hrs of Labs/Mics: Laboratory Tests 04/18/16 0705: Sodium Pending, Potassium Pending, Chloride Pending, Carbon Dioxide Pending, Anion Gap Pending, BUN Pending, Creatinine Pending, BUN/Creatinine Ratio Pending Assessment/Plan Assessment: 75-year-old gentleman with a PMH of Alzheimer's disease, S/P pacemaker implantation, left axillary mass S/P resection in 2013, gastric erosion/mild esophagitis on EGD in 2011, recurrent: CHRIS/PE anterior resection was brought in by family members out of concern for progressive confusion. CXR: 1. The lungs are hypoinflated. 2. No evidence of pneumonia or congestive heart failure. Head CT: No acute intracranial pathology. Chronic small vessel ischemic disease and volume loss. Problem list and plan: Progressive dementia and delirium Patient has lost the ability to speak in Welsh and now only speaks Scottish. Yesterday family memebers were able to communicate with him in Scottish but later in the day they said they could not understand what he said. Family member reported a bottle of meclizine that was found on unclear how much was in it previously. Started the patient on NS at 75 ml/hour UA: clear with few RBC and WBC. UC: NG after 2 days. TFTs WNL, vitamin D3 low and B12 came back high. Latest H/H 11.4/34.0, WBC 7.6. * Would avoid benzodiazepines in setting of potential paradoxical agitation * Geriatrics follow-up * Patient may benefit a trial of Aricept or Namenda * Neuro consult placed will follow up * Psych evalulated the patient. * We held off on Zyprexa due to prologed QTc, Dr. Ballesteros is aware. * Vitamin D supplementation * f/u RPR, lyme titer CKD stable, will monitor * BEP in am Regular diet DVT prophylaxis heparin 5000 units subcutaneous CODE STATUS: DNR/DNI Family desires long-term placement in the setting of risk to himself and elopement. We'll discuss options with case management in the a.m. Problem List: 1. Delirium 2. Dementia 3. CKD (chronic kidney disease) Pain Ratin Pain Location: not obtainable Pain Goal: Pain 4 or less Pain Plan: mild pain pathway Tomorrow's Labs & Rationales: BEP and Mg (monitoring electrolytes and Cr)
--- NOTE | 2016-04-18 11:54 | PN- Pulmonary ---
Subjective HPI/Critical Care Issues: Still confused afebrile Delirium persists offers no other complaints Objective Current Medications: Current Medications Sig/Kim Start time Last Medication Dose Route Stop Time Status Admin Acetaminophen 650 MG Q6P PRN 04/17 0645 AC PO Cholecalciferol 1,000 IU DAILY 04/18 1115 AC PO Olanzapine 2.5 MG Q8 04/17 2200 CAN PO Olanzapine 2.5 MG ONCE ONE 04/17 1929 DC 04/17 IM 04/17 1930 194 Oxycodone/ 1 TAB Q6P PRN 04/17 0645 AC 04/17 Acetaminophen PO 2120 Oxycodone/ 2 TAB Q6P PRN 04/17 0745 AC Acetaminophen PO Patient Medication 1 ED ONE ONE 04/17 1415 DC Teaching ED 04/17 1416 Laboratory Tests 04/18 04/17 04/17 07 0640 0600 Chemistry Sodium (137 - 145 mmol/L) 144 142 Potassium (3.5 - 5.1 mmol/L) 4.9 4.8 Chloride (98 - 107 mmol/L) 112 H 109 H Carbon Dioxide (22 - 30 mmol/L) 21 L 20 L Anion Gap (5 - 16) 11 12 BUN (9 - 20 mg/dL) 43 H 35 H Creatinine (0.7 - 1.2 mg/dL) 2.5 H 2.3 H Estimated GFR (>60 ml/min) 25 L 28 L BUN/Creatinine Ratio (7 - 25 %) 17.2 15.2 Magnesium (1.6 - 2.3 mg/dL) Pending 1.9 Hematology CBC w Diff NO MAN DIFF REQ WBC (4.8 - 10.8 /CUMM) 7.6 RBC (4.70 - 6.10 /CUMM) 3.65 L Hgb (14.0 - 18.0 G/DL) 11.4 L Hct (42 - 52 %) 34.0 L MCV (80.0 - 94.0 FL) 93.2 MCH (27.0 - 31.0 PG) 31.1 H RDW (11.5 - 14.5 %) 14.7 H Plt Count (130 - 400 /CUMM) 195 MPV (7.4 - 10.4 FL) 8.7 Gran % (42.2 - 75.2 %) 86.2 H Lymphocytes % (20.5 - 51.1 %) 5.3 L Monocytes % (1.7 - 9.3 %) 7.3 Eosinophils % (0 - 5 %) 0.8 Basophils % (0.0 - 2.0 %) 0.4 Absolute Granulocytes (1.4 - 6.5 /CUMM) 6.6 H Absolute Lymphocytes (1.2 - 3.4 /CUMM) 0.4 L Absolute Monocytes (0.10 - 0.60 /CUMM) 0.6 Absolute Eosinophils (0.0 - 0.7 /CUMM) 0.1 Absolute Basophils (0.0 - 0.2 /CUMM) 0 PUBS MCHC (33.0 - 37.0 G/DL) 33.3 Serology RPR Titer/FTA (NONREACTIVE) NONREACTIVE Lyme Disease Antibody (RATIO) Pending Vital Signs & I&O Last 24 Hrs of Vitals and I&O: Vital Signs Date Time Temp Pulse Resp B/P Pulse O2 O2 Flow FiO2 Ox Delivery Rate 04/18 1123 Room Air Room Air 04/18 0807 Room Air Room Air 04/18 0625 97.8 65 20 178/90 96 Room Air 04/17 2200 96.9 85 20 160/70 97 04/17 1534 Room Air Room Air 04/17 1509 Room Air Room Air 04/17 1458 Room Air Room Air 04/17 1452 Room Air Room Air 04/17 1411 98.0 79 20 142/80 96 Room Air Intake & Output 04/18 1600 04/18 0800 04/18 0000 Intake Total 0 250 Output Total Balance 0 250 Intake, Oral 0 250 Number 4 2 Bowel Movements Patient 165 lb Weight Impression/Plan Impression/Plan Impression/Plan: Physical Exam General Appearance: Mild Distress, alert and not oriented, Skin: has several soft tissue masses under the skin on both arms, mobile, circular with regular margins. skin is erythematous on both elbows. 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 VS on admission: BP , 147/91, HR 67, RR 18, SPO2 97% on RA, T 98.3 Pertinent labs: WBC 4.6, H&H 11.0/32.8, platelets 192, sodium 140, chloride 107, BUN/CR/2.6, glucose 101 CT head and CXR as indicated above Problem list: 1. Progressive dementia 2. Delirium 3. CKD stage 4 stable 4. Postural hypotension stable 5. S/p remote ppm 6. Delirium REC Ok with olanzapine for now as his mag is ok and discussed with family about the risks and benefit and they wish more symptomatic care regardless of risks (ie atypical antipshycotics) Have neuro to see him needs placement Keep mag more than 2 Zyprexa 2.5 po q 8 hrs prn Will follow Discussed with family yesterday Prog poor to guarded
--- NOTE | 2016-04-18 13:44 | NUR ---
Physical Therapy: Attempted to see pt this afternoon for treatment. Pt very agitated at this time in a net bed. Will cx treatment at this time due to safety. Will follow up later as appropriate. Thank you.
[2016-04-18 14:35] VITALS: BP 110/60
--- NOTE | 2016-04-18 15:24 | Cons- Neurology ---
General Information and HPI Consulting Request Date of Consult: 04/18/16 Requested By: VI PATEL,DEDE Alcala Reason for Consult: delirium in a patient with dementia Source of Information: RN, medical staff, chart Exam Limitations: unable to give history, dementia History of Present Illness: 75/M with known dementia of Alzheimers type brought in by family for progressive worsening and inability to remain living safely on his own. In the hospital he became delirious and agitated requiring sedation. At present he is calm but does not answer in Malay. He is natively [place]an- speaking and when interviewed and Zimbabwean gives incoherent and irrelevant responses to questions. He does follow simple commands such as gripping with the hands. Currently not agitated Allergies/Medications Allergies: Coded Allergies: methylprednisolone (NOTED ALLERGY TO STEROIDS - FAMILY UNAWARE OF ALLERGY ) prednisone (NOTED ALLERGY TO STEROIDS- FAMILY IS UNAWARE OF ALLERGY 04/14/16) Home Med List: No Known Home Medications Current Medications: Current Medications Sig/Kim Start time Last Medication Dose Route Stop Time Status Admin Acetaminophen 650 MG Q6P PRN 04/17 0745 AC PO Cholecalciferol 1,000 IU DAILY 04/18 1115 AC 04/18 PO 1236 Olanzapine 2.5 MG Q8P PRN 04/18 1230 AC 04/18 PO 1304 Olanzapine 2.5 MG ONCE ONE 04/17 1929 DC 04/17 IM 04/17 193 194 Oxycodone/ 1 TAB Q6P PRN 04/17 0745 AC 04/17 Acetaminophen PO 2121 Oxycodone/ 2 TAB Q6P PRN 04/17 0745 AC Acetaminophen PO Review of Systems Review of Systems: Unobtainable due to his dementia Past History Travel History Traveled to [place] past 21 day No Medical History Neurological: Alzheimer's disease, dementia EENT: glaucoma Cardiovascular: PACEMAKER Respiratory: NONE Gastrointestinal: NONE Hepatic: NONE Renal: URINARY RETENTION Musculoskeletal: NONE Psychiatric: NONE Endocrine: NONE Blood Disorders: LYME DISEASE Cancer(s): 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 Surgical History Surgical History: non-contributory Psychosocial History Services at Home: None Smoking Status: Unknown If Ever Smoked ETOH Use: denies use Illicit Drug Use: denies illicit drug use Exam & Diagnostic Data Vital Signs and I&O Vital Signs Date Time Temp Pulse Resp B/P Pulse O2 O2 Flow FiO2 Ox Delivery Rate 04/18 1435 97.6 89 18 110/60 95 04/18 1123 Room Air Room Air 04/18 0807 Room Air Room Air 04/18 0625 97.8 65 20 178/90 96 Room Air 04/17 2200 96.9 85 20 160/70 97 04/17 1534 Room Air Room Air Intake & Output 04/18 1600 04/18 0800 04/18 0000 Intake Total 0 250 Output Total Balance 0 250 Intake, Oral 0 250 Number 4 2 Bowel Movements Patient 165 lb Weight Physical Exam: He appears disheveled and somewhat thin but skin color is good. No edema he awakens to voice with light shaking, was fumbling with his dentures and would fixed gaze briefly when spoken to. He can follow some simple commands and either does not understand or ignores others even in [place]an. Pupils are midsize equal and reactive, eye movements appear conjugate and full. No facial asymmetry. Unable to check gag reflex but tongue appears to move normally and in the midline bilateral grasp reflexes, tone slightly increased, moves 4 extremities equally. Tendon reflexes equal with downgoing toes. Remaining elements of the complete neurologic exam cannot be performed due to his degree of dementia Last 48 Hours of Lab Results: Laboratory Tests 04/18 04/17 04/17 0705 0640 0600 Chemistry Sodium (137 - 145 mmol/L) 144 142 Potassium (3.5 - 5.1 mmol/L) 4.9 4.8 Chloride (98 - 107 mmol/L) 112 H 109 H Carbon Dioxide (22 - 30 mmol/L) 21 L 20 L Anion Gap (5 - 16) 11 12 BUN (9 - 20 mg/dL) 43 H 35 H Creatinine (0.7 - 1.2 mg/dL) 2.5 H 2.3 H Estimated GFR (>60 ml/min) 25 L 28 L BUN/Creatinine Ratio (7 - 25 %) 17.2 15.2 Magnesium (1.6 - 2.3 mg/dL) 2.0 1.9 Hematology CBC w Diff NO MAN DIFF REQ WBC (4.8 - 10.8 /CUMM) 7.6 RBC (4.70 - 6.10 /CUMM) 3.65 L Hgb (14.0 - 18.0 G/DL) 11.4 L Hct (42 - 52 %) 34.0 L MCV (80.0 - 94.0 FL) 93.2 MCH (27.0 - 31.0 PG) 31.1 H RDW (11.5 - 14.5 %) 14.7 H Plt Count (130 - 400 /CUMM) 195 MPV (7.4 - 10.4 FL) 8.7 Gran % (42.2 - 75.2 %) 86.2 H Lymphocytes % (20.5 - 51.1 %) 5.3 L Monocytes % (1.7 - 9.3 %) 7.3 Eosinophils % (0 - 5 %) 0.8 Basophils % (0.0 - 2.0 %) 0.4 Absolute Granulocytes (1.4 - 6.5 /CUMM) 6.6 H Absolute Lymphocytes (1.2 - 3.4 /CUMM) 0.4 L Absolute Monocytes (0.10 - 0.60 /CUMM) 0.6 Absolute Eosinophils (0.0 - 0.7 /CUMM) 0.1 Absolute Basophils (0.0 - 0.2 /CUMM) 0 PUBS MCHC (33.0 - 37.0 G/DL) 33.3 Serology RPR Titer/FTA (NONREACTIVE) NONREACTIVE Lyme Disease Antibody (RATIO) 0.40 Imaging/Other Studies: CT HEAD WO IV CONTRAST EXAMINATION: CT HEAD WITHOUT CONTRAST CLINICAL INFORMATION: Altered mental status COMPARISON: 06/12/2011 TECHNIQUE: Contiguous axial imaging was performed from the skull base to vertex without intravenous administration of contrast. DLP: 600.71 mGy-cm FINDINGS: There is no evidence of acute intracranial hemorrhage or territorial infarction. No abnormal mass effect or midline shift is seen. Wolfe to white matter differentiation is well preserved. No extra-axial fluid collections are identified. The ventricles are normal in size. Moderate volume loss is noted. There is mild periventricular white matter hypoattenuation consistent with chronic small vessel ischemic disease. The osseous structures and soft tissues are normal. The mastoid air cells and visualized portions of the paranasal sinuses are well aerated. IMPRESSION: No acute intracranial pathology. Chronic small vessel ischemic disease and volume loss., Assessment/Plan Assessment: Development of delirium or hospital psychosis following hospital admission and removal from his environment with underlying severe dementia. No indication of any acute new neurologic process Recommendations: Check B12 Olanzapine or haloperidol when necessary agitation ECF Consult Acknowledgment - Thank you for your consult request.
[2016-04-18 22:42] VITALS: BP 144/80
--- NOTE | 2016-04-19 07:13 | PN- Housestaff ---
Subjective Follow-up For: Delirium and worsening dementia Subjective: I saw and examined the patient at bedside, patient is in a net bed, sleeping, opens his eyes when I call his name but goes back to sleep. Appears calm and in no distress. Patient is not able to communicate and does not follow directions. Review of Systems Constitutional: Reports: no symptoms (nto able to communicate). Objective Last 24 Hrs of Vital Signs/I&O Vital Signs Date Time Temp Pulse Resp B/P Pulse O2 O2 Flow FiO2 Ox Delivery Rate 04/18 2242 98.2 90 20 144/80 90 Room Air 04/18 1435 97.6 89 18 110/60 95 Intake & Output 04/19 1600 04/19 0800 04/19 0000 Intake Total 350 Output Total Balance 350 Intake, Oral 350 Number 2 3 Bowel Movements Physical Exam General Appearance: No Acute Distress, sleeping, not alert, not oriented, wakes up when called but goes back to sleep. Skin: No Significant Lesion HEENT: Atraumatic Neck: Supple, No JVD Cardiovascular: Normal S1, Normal S2, No Murmurs Lungs: Clear to Auscultation, Normal Air Movement Abdomen: Normal Bowel Sounds, Soft, No Tenderness Neurological: Normal Tone Extremities: Normal Pulses, No Tenderness/Swelling Current Medications: Current Medications Sig/Kim Start time Last Medication Dose Route Stop Time Status Admin Acetaminophen 650 MG Q6P PRN 04/17 0745 AC PO Cholecalciferol 1,000 IU DAILY 04/18 1115 AC 04/19 PO 0915 Olanzapine 2.5 MG Q8P PRN 04/18 1230 AC 04/18 PO 2354 Oxycodone/ 1 TAB Q6P PRN 04/17 0745 AC 04/17 Acetaminophen PO 2121 Oxycodone/ 2 TAB Q6P PRN 04/17 0745 AC Acetaminophen PO Sodium Chloride 1,000 ML Q13H 04/19 1115 AC 04/19 IV 1141 Sodium Chloride 1,000 ML Q13H 04/19 1100 DC IV Last 24 Hrs of Lab/Dyllan Results Last 24 Hrs of Labs/Mics: Laboratory Tests 04/19/16 0815: Anion Gap 16, Estimated GFR 21 L, BUN/Creatinine Ratio 17.9, Magnesium 2.1, Creatine Kinase 845 H Assessment/Plan Assessment: 75-year-old gentleman with a PMH of Alzheimer's disease, S/P pacemaker implantation, left axillary mass S/P resection in 2013, gastric erosion/mild esophagitis on EGD in 2011, recurrent: CHRIS/PE anterior resection was brought in by family members out of concern for progressive confusion. CXR: 1. The lungs are hypoinflated. 2. No evidence of pneumonia or congestive heart failure. Head CT: No acute intracranial pathology. Chronic small vessel ischemic disease and volume loss. Problem list and plan: Progressive dementia and delirium Patient has lost the ability to speak in Croatian and now only speaks [place] Islander. Family members have been at bedside and reported his speech is not coherent anymore. Family member reported a bottle of meclizine that was found on unclear how much was in it previously. UA: clear with few RBC and WBC. UC: NG after 2 days. TFTs WNL, vitamin D3 low and B12 is high. Latest H/H 11.4/34.0, WBC 7.6. RPR and lyme titer came back negative. * Would avoid benzodiazepines in setting of potential paradoxical agitation * Geriatrics follow-up * Patient may benefit a trial of Aricept or Namenda * Neuro consult placed, recommendations followed. Patient has no acute neurologic process and will need a long-term placement in ECF. * Psych evaluated the patient as well, recommendations followed. * Patient has a net bed due to becoming agitated and fall risk. Continued Zyprexa PRN for agitation * Continue Vitamin D supplementation BALAJI on CKD Patient is found to have elevated Cr and hypernatremia today. Etiologies could be dehydration as well as rhabdomyolysis as the patient was agitated and was put on restraint during the first 24h of stay. CK is elevated . We started him on half NS fluids. * BEP at 4 pm and tomorrow am Regular diet DVT prophylaxis heparin 5000 units subcutaneous CODE STATUS: DNR/DNI Problem List: 1. Delirium 2. Dementia 3. CKD (chronic kidney disease) Pain Ratin Pain Location: not obtainable, does not appear in distress. Pain Goal: Pain 4 or less Pain Plan: tylenol for mild pain and percocet for moderate pain Tomorrow's Labs & Rationales: BEP (hypernatremia) CBC (anemia)
[2016-04-19 14:02] VITALS: BP 179/90
--- NOTE | 2016-04-19 14:23 | PN- Pulmonary ---
See Addendum Subjective HPI/Critical Care Issues: I saw and examined the patient at bedside, patient is in a net bed, sleeping, opens his eyes when I call his name but goes back to sleep. Appears calm and in no distress. Patient is not able to communicate and does not follow directions. Review of Systems Constitutional: Reports: no symptoms (nto able to communicate). Objective Current Medications: Current Medications Sig/Kim Start time Last Medication Dose Route Stop Time Status Admin Acetaminophen 650 MG Q6P PRN 04/17 0745 AC PO Cholecalciferol 1,000 IU DAILY 04/18 1115 AC 04/19 PO 0915 Olanzapine 2.5 MG Q8P PRN 04/18 1230 AC 04/18 PO 2354 Oxycodone/ 1 TAB Q6P PRN 04/17 0745 AC 04/17 Acetaminophen PO 2121 Oxycodone/ 2 TAB Q6P PRN 04/17 0745 AC Acetaminophen PO Sodium Chloride 1,000 ML Q13H 04/19 1115 AC 04/19 IV 1141 Sodium Chloride 1,000 ML Q13H 04/19 1100 DC IV Vital Signs & I&O Last 24 Hrs of Vitals and I&O: Vital Signs Date Time Temp Pulse Resp B/P Pulse O2 O2 Flow FiO2 Ox Delivery Rate 04/19 1402 97.3 75 20 179/90 97 Room Air 04/18 2242 98.2 90 20 144/80 90 Room Air / 1435 97.6 89 18 110/60 95 Intake & Output 04/19 1600 08 0800 /08 0000 Intake Total 350 Output Total Balance 350 Intake, Oral 350 Number 2 3 Bowel Movements Impression/Plan Impression/Plan Impression/Plan: Physical Exam General Appearance: Mild Distress, alert and not oriented, Skin: has several soft tissue masses under the skin on both arms, mobile, circular with regular margins. skin is erythematous on both elbows. 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 VS on admission: BP , 147/91, HR 67, RR 18, SPO2 97% on RA, T 98.3 Pertinent labs: WBC 4.6, H&H 11.0/32.8, platelets 192, sodium 140, chloride 107, BUN/CR/2.6, glucose 101 CT head and CXR as indicated above Problem list: 1. Progressive dementia 2. Delirium 3. CKD stage 4 stable 4. Postural hypotension stable 5. S/p remote ppm 6. Delirium REC Ok with olanzapine for now as his mag is ok and discussed with family about the risks and benefit and they wish more symptomatic care regardless of risks (ie atypical antipshycotics) needs placement Keep mag more than 2 Zyprexa 2.5 po q 8 hrs prn dc oxycodone from his med list Will follow Prog poor to guarded
--- NOTE | 2016-04-19 15:32 | NUR ---
PHYSICAL THERAPY: PATIENT CURRENTLY IN NET BED RESTING COMFORTABLY. PER MEDICAL STAFF AND MEDIICAL RECORD, PATIENT IS UNABLE TO FOLLOW 1 STEP COMMANDS REVERTED TO SPEAKING NON-FLUENT ISRAELI AT THIS TIME. PRESENTING WITH WORSENING DELIRIUM/DEMENTIA. Pt IS NOT ABLE TO APPROPRIATELY PARTICIPATE IN PHYSICAL THERAPY TREATMENT AT THIS TIME AND IS UNSAFE TO TRANSFER OR AMBULATE. PATIENT WILL BE PLACED ON HOLD; PLEASE RE-CONSULT IF MENTAL STATUS CHANGES AND PATIENT IS CLINICALLY INDICATED FOR ACUTE SKILLED P.T. SERVICES. THANK YOU.
[2016-04-19 23:51] VITALS: BP 114/68
--- NOTE | 2016-04-20 07:00 | PN- Housestaff ---
Subjective Follow-up For: Delirium, agitation and worsening dementia Subjective: Patient is alert and awake, sitting in bed. appears calm and comfortable with no distress. Responds with eye contact and says a few words which are not understandable. According to the aide at the bedside who is giving the patient his breakfast, patient has been able to speak [place] Islander at times. Patient was agitated overnight and pulled out his IV line. He was not put on restraints because of the elevated CK. He has a net bed. Review of Systems Constitutional: Reports: no symptoms. Objective Last 24 Hrs of Vital Signs/I&O Vital Signs Date Time Temp Pulse Resp B/P Pulse O2 O2 Flow FiO2 Ox Delivery Rate 04/20 0713 97.1 81 20 160/80 97 Room Air 04/19 2351 97.6 88 20 114/68 97 Room Air 04/19 1402 97.3 75 20 179/90 97 Room Air Intake & Output 04/20 1600 04/20 0800 04/20 0000 Intake Total 1080 Output Total Balance 1080 Intake, IV 600 Intake, Oral 480 Physical Exam General Appearance: Alert, Cooperative, No Acute Distress, orientation is unable to obtain as he is not able to communicate in meaning ful words. Skin: No Significant Lesion HEENT: Atraumatic, EOMI Neck: No JVD Cardiovascular: Normal S1, Normal S2, No Murmurs Lungs: Clear to Auscultation, Normal Air Movement Abdomen: Soft, No Tenderness Neurological: Normal Tone, speech is non-fluent Extremities: No Edema, Normal Pulses Current Medications: Current Medications Sig/Kim Start time Last Medication Dose Route Stop Time Status Admin Acetaminophen 650 MG Q6P PRN 04/17 0745 AC PO Cholecalciferol 1,000 IU DAILY 04/18 1115 AC 04/20 PO 0818 Olanzapine 2.5 MG Q8P PRN 04/18 1230 AC 04/20 PO 0008 Oxycodone/ 1 TAB Q6P PRN 04/17 0745 DC 04/17 Acetaminophen PO 2121 Oxycodone/ 2 TAB Q6P PRN 04/17 0745 DC Acetaminophen PO Sodium Chloride 1,000 ML Q13H 04/19 1115 DC 04/19 IV 1141 Sodium Chloride 1,000 ML Q13H 04/19 1100 DC IV Last 24 Hrs of Lab/Dyllan Results Last 24 Hrs of Labs/Mics: Laboratory Tests 04/20/16 0730: Sodium Pending, Potassium Pending, Chloride Pending, Carbon Dioxide Pending, Anion Gap Pending, BUN Pending, Creatinine Pending, BUN/Creatinine Ratio Pending , Magnesium Pending, Creatine Kinase Pending, CBC w Diff NO MAN DIFF REQ, RBC 3.63 L, MCV 92.3, MCH 31.1 H, RDW 14.6 H, MPV 8.6, Gran % 76.4 H, Lymphocytes % 9.4 L, Monocytes % 11.3 H, Eosinophils % 2.5, Basophils % 0.4, Absolute Granulocytes 5.2, Absolute Lymphocytes 0.6 L, Absolute Monocytes 0.8 H, Absolute Eosinophils 0.2, Absolute Basophils 0, PUBS MCHC 33.7 04/19/16 1710: Anion Gap 13, Estimated GFR 23 L, BUN/Creatinine Ratio 18.5 Assessment/Plan Assessment: 75-year-old gentleman with a PMH of Alzheimer's disease, S/P pacemaker implantation, left axillary mass S/P resection in 2013, gastric erosion/mild esophagitis on EGD in 2011, recurrent: CHRIS/PE anterior resection was brought in by family members out of concern for progressive confusion. CXR: 1. The lungs are hypoinflated. 2. No evidence of pneumonia or congestive heart failure. Head CT: No acute intracranial pathology. Chronic small vessel ischemic disease and volume loss. Problem list and plan: Progressive dementia and delirium Patient has lost the ability to speak in [place] Islander and now only speaks [place]er. Family members have been at bedside and reported his speech is not coherent anymore. Family member reported a bottle of meclizine that was found on unclear how much was in it previously. UA: clear with few RBC and WBC. UC: NG after 2 days. TFTs WNL, vitamin D3 low and B12 is high. Latest H/H 11.4/34.0, WBC 7.6. RPR and lyme titer came back negative. * Would avoid benzodiazepines in setting of potential paradoxical agitation * Geriatrics follow-up * Patient may benefit a trial of Aricept or Namenda * Neuro consult placed, recommendations followed. Patient has no acute neurologic process and will need a long-term placement in ECF. * Psych evaluated the patient as well, recommendations followed. * Patient has a net bed due to becoming agitated and fall risk. Continued Zyprexa PRN for agitation * Continue Vitamin D supplementation We kept safety monitor order in, to allow the patient be outside of the net bed at times when he is not agitated. BALAJI on CKD Patient is found to have elevated Cr and hypernatremia today. Etiologies could be dehydration as well as rhabdomyolysis as the patient was agitated and was put on restraint during the first 24h of stay. CK is elevated . Will give him on D5 half NS fluid. Will give boluses as the patient may not be able to keep the IV line for long time (he gets agitated overnight). * follow up BEP an CK tomorrow am Regular diet DVT prophylaxis heparin 5000 units subcutaneous CODE STATUS: DNR/DNI Problem List: 1. Delirium 2. Dementia 3. CKD (chronic kidney disease) Pain Ratin Pain Location: none Pain Goal: Pain 4 or less Pain Plan: does not report pain and appears comfortable in no distress Tomorrow's Labs & Rationales: BEP, CK (elevated CK, hypernatremia, elevated BUN and Cr)
[2016-04-20 07:13] VITALS: BP 160/80
[2016-04-20 08:24] LABS: ABSOLUTE BASOPHIL COUNT 0 /CUMM (0.0-0.2); ABSOLUTE EOSINOPHIL COUNT 0.2 /CUMM (0.0-0.7); ABSOLUTE GRANULOCYTE CT 5.2 /CUMM (1.4-6.5); ABSOLUTE LYMPH COUNT 0.6 /CUMM (1.2-3.4); ABSOLUTE MONOCYTE COUNT 0.8 /CUMM (0.10-0.60); BASOPHIL % 0.4 % (0.0-2.0); EOSINOPHIL % 2.5 % (0-5); GRANULOCYTE % 76.4 % (42.2-75.2); HEMATOCRIT 33.5 % (42-52); MEAN CORPUSCULAR HGB 31.1 PG (27.0-31.0); MEAN CORPUSCULAR HGB CONC 33.7 G/DL (33.0-37.0); MEAN CORPUSCULAR VOLUME 92.3 FL (80.0-94.0); MEAN PLATELET VOLUME 8.6 FL (7.4-10.4); PLATELET COUNT 184 /CUMM (130-400); RBC DISTRIBUTION WIDTH 14.6 % (11.5-14.5); RED BLOOD CELL CT 3.63 /CUMM (4.70-6.10); WHITE BLOOD CELL COUNT 6.8 /CUMM (4.8-10.8)
--- NOTE | 2016-04-20 08:57 | PN- Pulmonary ---
Subjective HPI/Critical Care Issues: LIttle better Eating Attimes still delirious ROS could not be obtained Objective Current Medications: Current Medications Sig/Kim Start time Last Medication Dose Route Stop Time Status Admin Acetaminophen 650 MG Q6P PRN 04/17 0745 AC PO Cholecalciferol 1,000 IU DAILY 04/18 1115 AC 04/20 PO 0818 Olanzapine 2.5 MG Q8P PRN 04/18 1230 AC 04/20 PO 0008 Oxycodone/ 1 TAB Q6P PRN 04/17 0745 DC 04/17 Acetaminophen PO 2121 Oxycodone/ 2 TAB Q6P PRN 04/17 0745 DC Acetaminophen PO Sodium Chloride 1,000 ML Q13H 04/19 1115 DC 04/19 IV 1141 Sodium Chloride 1,000 ML Q13H 04/19 1100 DC IV Vital Signs & I&O Last 24 Hrs of Vitals and I&O: Laboratory Tests 04/20 04/19 04/19 0730 1710 0815 Chemistry Sodium (137 - 145 mmol/L) Pending 146 H 148 H Potassium (3.5 - 5.1 mmol/L) Pending 5.1 4.8 Chloride (98 - 107 mmol/L) Pending 111 H 112 H Carbon Dioxide (22 - 30 mmol/L) Pending 23 21 L Anion Gap (5 - 16) Pending 13 16 BUN (9 - 20 mg/dL) Pending 50 H 52 H Creatinine (0.7 - 1.2 mg/dL) Pending 2.7 H 2.9 H Estimated GFR (>60 ml/min) 23 L 21 L BUN/Creatinine Ratio (7 - 25 %) Pending 18.5 17.9 Magnesium (1.6 - 2.3 mg/dL) Pending 2.1 Creatine Kinase (55 - 170 U/L) Pending 845 H Hematology CBC w Diff NO MAN DIFF REQ WBC (4.8 - 10.8 /CUMM) 6.8 RBC (4.70 - 6.10 /CUMM) 3.63 L Hgb (14.0 - 18.0 G/DL) 11.3 L Hct (42 - 52 %) 33.5 L MCV (80.0 - 94.0 FL) 92.3 MCH (27.0 - 31.0 PG) 31.1 H RDW (11.5 - 14.5 %) 14.6 H Plt Count (130 - 400 /CUMM) 184 MPV (7.4 - 10.4 FL) 8.6 Gran % (42.2 - 75.2 %) 76.4 H Lymphocytes % (20.5 - 51.1 %) 9.4 L Monocytes % (1.7 - 9.3 %) 11.3 H Eosinophils % (0 - 5 %) 2.5 Basophils % (0.0 - 2.0 %) 0.4 Absolute Granulocytes (1.4 - 6.5 /CUMM) 5.2 Absolute Lymphocytes (1.2 - 3.4 /CUMM) 0.6 L Absolute Monocytes (0.10 - 0.60 /CUMM) 0.8 H Absolute Eosinophils (0.0 - 0.7 /CUMM) 0.2 Absolute Basophils (0.0 - 0.2 /CUMM) 0 PUBS MCHC (33.0 - 37.0 G/DL) 33.7 Vital Signs Date Time Temp Pulse Resp B/P Pulse O2 O2 Flow FiO2 Ox Delivery Rate 04/20 0713 97.1 81 20 160/80 97 Room Air 04/19 2351 97.6 88 20 114/68 97 Room Air 04/19 1402 97.3 75 20 179/90 97 Room Air Intake & Output 04/20 1600 04/20 0800 04/20 0000 Intake Total 1080 Output Total Balance 1080 Intake, IV 600 Intake, Oral 480 Impression/Plan Impression/Plan Impression/Plan: Physical Exam General Appearance: Mild Distress, alert and not oriented, Skin: has several soft tissue masses under the skin on both arms, mobile, circular with regular margins. skin is erythematous on both elbows. 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 VS on admission: BP , 147/91, HR 67, RR 18, SPO2 97% on RA, T 98.3 Pertinent labs: WBC 4.6, H&H 11.0/32.8, platelets 192, sodium 140, chloride 107, BUN/CR/2.6, glucose 101 CT head and CXR as indicated above Problem list: 1. Progressive dementia 2. Delirium 3. CKD stage 4 stable 4. Postural hypotension stable 5. S/p remote ppm 6. Delirium 7. Hypernatremia with bettye due to low po intake REC Ok with olanzapine for now as his mag is ok and discussed with family about the risks and benefit and they wish more symptomatic care regardless of risks (ie atypical antipshycotics) needs placement COnt to encourange po intake Keep mag more than 2 Zyprexa 2.5 po q 8 hrs prn Start zyprexa 2.5 at hs daily po aswell Will follow Needs str and ltr Prog poor to guarded
--- NOTE | 2016-04-20 09:08 | Patient Discharge Instructions ---
Discharge Instructions General Discharge Information You were seen/treated for: delirium and worsening dementia Special Instructions: Please: Follow up with PCP within a week of discharge Take new medications as instructed Activity Activity Self Limited: Yes Acute Coronary Syndrome Inclusion Criteria At DC or during hospital stay patient has or had the following: ACS DIAGNOSIS No Discharge Core Measures Meds if any: Prescribed or Continued at Discharge Meds if any: NOT Prescribed or Continued at Discharge Congestive Heart Failure Inclusion Criteria At DC or during hospital stay patient has or had the following: CHF DIAGNOSIS No Discharge Core Measures Meds if any: Prescribed or Continued at Discharge Meds if any: NOT Prescribed or Continued at Discharge Cerebrovascular accident Inclusion Criteria At DC or during hospital stay patient has or had the following: CVA/TIA Diagnosis No Discharge Core Measures Meds if any: Prescribed or Continued at Discharge Meds if any: NOT Prescribed or Continued at Discharge Venous thromboembolism Inclusion Criteria VTE Diagnosis No VTE Type NONE VTE Confirmed by (Test) NONE Discharge Core Measures - Per Current guidelines, there needs to be overlap - treatment for the first 5 days of Warfarin therapy. - If discharged on Warfarin prior to 5 days of - overlap therapy, the patient will need to be - assessed for post discharge needs including - *Post discharge parental anticoagulation - *Warfarin and/or parental anticoagulation education - *Follow up date to check INR post discharge At least 5 days overlap therapy as Inpatient No Meds if any: Prescribed or Continued at Discharge Note: Overlap Therapy is Warfarin and Anticoagulant Meds if any: NOT Prescribed or Continued at Discharge
--- NOTE | 2016-04-20 09:52 | NUR ---
0100 PT PULLED OUT HL WITH COBAN IN PLACED. 0115 UNABLE TO INSERT HL WITH 4 STAFFS HOLDING PT.REPORTED TO LITIGATION DOCKET MANAGER WITH NEW ORDER.MICHAEL SOFT WRISTS RESTRAINT APPLIED BUT STILL UNABLE TO START HL. CALL OUT TO LITIGATION DOCKET MANAGER.WRISTS RESTRAINTS OFF.HOLD IVF FOR NOW.TO ENCOURAGE PO FLUID INSTEAD. 0200 PT DRINKING WATER WELL.
[2016-04-20 14:48] VITALS: BP 148/82
--- NOTE | 2016-04-21 07:31 | PN- Housestaff ---
Subjective Follow-up For: worsening dementia, delirium Subjective: I saw and examined the patient today. Patient is sitting in chair, alert and awake, he is attentive and answers questions with Syriac words, which are not clearly pronounced. Does not appear in distress, is breathing comfortably in room air. Has had very good appetite, has been drinking adequate amount of fluid per his nurse. Review of Systems Constitutional: Denies: chills, fever. EENTM: Reports: no symptoms. Cardiovascular: Reports: no symptoms. Respiratory: Reports: no symptoms. Gastrointestinal: Reports: no symptoms. Genitourinary: Reports: no symptoms. Musculoskeletal: Reports: no symptoms. Skin: Reports: no symptoms. Neurological/Psychological: Reports: no symptoms. Objective Last 24 Hrs of Vital Signs/I&O Vital Signs Date Time Temp Pulse Resp B/P Pulse O2 O2 Flow FiO2 Ox Delivery Rate 04/21 1147 Room Air Room Air 04/21 0813 164/90 04/21 0734 98.1 79 20 174/84 96 Room Air 04/20 1448 97.8 75 20 148/82 97 Intake & Output 04/21 1600 04/21 0800 04/21 0000 Intake Total 120 240 Output Total Balance 120 240 Intake, Oral 120 240 Number 1 1 Bowel Movements Physical Exam General Appearance: Alert, Cooperative, No Acute Distress Skin: there are multiple soft tissue mass like lesions under the skin on the both upper extremities, nontender and nonerythematous HEENT: Atraumatic, EOMI, Mucous Membr. moist/pink Neck: Supple, No JVD Cardiovascular: Normal S1, Normal S2, No Murmurs Lungs: Clear to Auscultation, Normal Air Movement Abdomen: Soft, No Tenderness Neurological: Normal Tone, speech is fluent but not meaningful Extremities: No Edema, Normal Pulses Current Medications: Current Medications Sig/Kim Start time Last Medication Dose Route Stop Time Status Admin Acetaminophen 650 MG Q6P PRN 04/17 0745 AC PO Cholecalciferol 1,000 IU DAILY 04/18 1115 AC 04/21 PO 0749 Dextrose/Sodium 1,000 ML Q10H 04/20 1200 DC Chloride IV 04/20 2159 Olanzapine 2.5 MG Q8P PRN 04/18 1230 AC 04/21 PO 1305 Last 24 Hrs of Lab/Dyllan Results Last 24 Hrs of Labs/Mics: Laboratory Tests 04/21/16 0710: Anion Gap 11, Estimated GFR 23 L, BUN/Creatinine Ratio 18.5, Magnesium 1.9, Creatine Kinase 364 H Assessment/Plan Assessment: 75-year-old gentleman with a PMH of Alzheimer's disease, ischemic cardiomyopathy S/P pacemaker and AICD implantation, left axillary mass S/P resection in 2013, gastric erosion/mild esophagitis on EGD in 2011, recurrent: CHRIS/PE anterior resection was brought in by family members out of concern for progressive confusion. CXR: 1. The lungs are hypoinflated. 2. No evidence of pneumonia or congestive heart failure. Head CT: No acute intracranial pathology. Chronic small vessel ischemic disease and volume loss. Problem list and plan: Worsening dementia and acute delirium- resolved, back to his baseline Patient has lost the ability to speak in French and now only speaks Syriac, he answers simple questions but mostly what he says is more like a word salad, . Family members have been at bedside and reported his speech is not coherent anymore. Family member reported a bottle of meclizine that was found on unclear how much was in it previously. UA: clear with few RBC and WBC. UC: NG after 2 days. TFTs WNL, vitamin D3 low and B12 is high. Latest H/H 11.4/34.0, WBC 7.6. RPR and lyme titer came back negative. * Avoid benzodiazepines in setting of potential paradoxical agitation * Geriatrics follow-up * Neuro consult placed, recommendations followed. Patient has no acute neurologic process and will need a long-term placement in ECF. * Psych evaluated the patient as well, recommendations followed. * Patient has a net bed due to becoming agitated and fall risk. Continued Zyprexa PRN for agitation * Continue Vitamin D supplementation We kept safety monitor order in for during the day, to allow the patient be outside of the net bed at times when he is not agitated. Patient still requires net bed at night, order needs to be put in by night team. Per psychiatry patient benefits the most from geriatric psych. BALAJI on CKD -resolved Patient was found to have elevated Cr and hypernatremia on admission. Etiologies could be dehydration as well as rhabdomyolysis as the patient was agitated and was put on restraints. CK was elevated to 845. Patient received half normal saline IV for the past 48 hours, repeat CK is down to 364 today. Patient has been drinking adequately orally. Hypernatremia has resolved, creatinine is back to baseline. Regular diet DVT prophylaxis heparin 5000 units subcutaneous CODE STATUS: DNR/DNI Problem List: 1. Dementia 2. CKD (chronic kidney disease) 3. Delirium Pain Ratin Pain Location: no pain Pain Goal: Pain 4 or less Pain Plan: tyelnol no narcotics or benzodiazepines Tomorrow's Labs & Rationales: none
[2016-04-21 07:34] VITALS: BP 174/84
--- NOTE | 2016-04-21 08:00 | NUR ---
PT REMAINS CONFUSED BUT VERY PLEASANT THIS MORNING. COOPERATIVE WITH NO AGGRESSIVE BEHAVIORS NOTED. PATIENT SAFETY MONITOR AT BEDSIDE. NET BED DISCONTINUED AT THIS TIME. WILL MONITOR.
[2016-04-21 08:13] VITALS: BP 164/90
--- NOTE | 2016-04-21 09:33 | PN- Pulmonary ---
Subjective HPI/Critical Care Issues: Doing better In bathroom more cooperative Objective Current Medications: Current Medications Sig/Kim Start time Last Medication Dose Route Stop Time Status Admin Acetaminophen 650 MG Q6P PRN 04/17 0745 AC PO Cholecalciferol 1,000 IU DAILY 04/18 1115 AC 04/21 PO 0749 Dextrose/Sodium 1,000 ML Q10H 04/20 1200 DC Chloride IV 04/20 2159 Olanzapine 2.5 MG Q8P PRN 04/18 1230 AC 04/21 PO 0304 Vital Signs & I&O Last 24 Hrs of Vitals and I&O: Vital Signs Date Time Temp Pulse Resp B/P Pulse O2 O2 Flow FiO2 Ox Delivery Rate 04/21 0813 164/90 04/21 0734 98.1 79 20 174/84 96 Room Air 04/20 1448 97.8 75 20 148/82 97 04/20 1143 Room Air Room Air Intake & Output 04/21 1600 04/21 0800 04/21 0000 Intake Total 120 240 Output Total Balance 120 240 Intake, Oral 120 240 Number 1 1 Bowel Movements Laboratory Tests 04/21 04/20 04/19 0710 0730 1710 Chemistry Sodium (137 - 145 mmol/L) 144 145 146 H Potassium (3.5 - 5.1 mmol/L) 4.9 4.5 5.1 Chloride (98 - 107 mmol/L) 110 H 110 H 111 H Carbon Dioxide (22 - 30 mmol/L) 23 21 L 23 Anion Gap (5 - 16) 11 13 13 BUN (9 - 20 mg/dL) 50 H 54 H 50 H Creatinine (0.7 - 1.2 mg/dL) 2.7 H 3.1 H 2.7 H Estimated GFR (>60 ml/min) 23 L 20 L 23 L BUN/Creatinine Ratio (7 - 25 %) 18.5 17.4 18.5 Magnesium (1.6 - 2.3 mg/dL) 1.9 1.9 Creatine Kinase (55 - 170 U/L) 364 H 548 H Hematology CBC w Diff NO MAN DIFF REQ WBC (4.8 - 10.8 /CUMM) 6.8 RBC (4.70 - 6.10 /CUMM) 3.63 L Hgb (14.0 - 18.0 G/DL) 11.3 L Hct (42 - 52 %) 33.5 L MCV (80.0 - 94.0 FL) 92.3 MCH (27.0 - 31.0 PG) 31.1 H RDW (11.5 - 14.5 %) 14.6 H Plt Count (130 - 400 /CUMM) 184 MPV (7.4 - 10.4 FL) 8.6 Gran % (42.2 - 75.2 %) 76.4 H Lymphocytes % (20.5 - 51.1 %) 9.4 L Monocytes % (1.7 - 9.3 %) 11.3 H Eosinophils % (0 - 5 %) 2.5 Basophils % (0.0 - 2.0 %) 0.4 Absolute Granulocytes (1.4 - 6.5 /CUMM) 5.2 Absolute Lymphocytes (1.2 - 3.4 /CUMM) 0.6 L Absolute Monocytes (0.10 - 0.60 /CUMM) 0.8 H Absolute Eosinophils (0.0 - 0.7 /CUMM) 0.2 Absolute Basophils (0.0 - 0.2 /CUMM) 0 PUBS MCHC (33.0 - 37.0 G/DL) 33.7 Impression/Plan Impression/Plan Impression/Plan: Physical Exam General Appearance: Mild Distress, alert and not oriented, Skin: has several soft tissue masses under the skin on both arms, mobile, circular with regular margins. skin is erythematous on both elbows. 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 VS on admission: BP , 147/91, HR 67, RR 18, SPO2 97% on RA, T 98.3 Pertinent labs: WBC 4.6, H&H 11.0/32.8, platelets 192, sodium 140, chloride 107, BUN/CR/2.6, glucose 101 CT head and CXR as indicated above Problem list: 1. Progressive dementia 2. Delirium improving 3. CKD stage 4 now creat back to baseline 4. Postural hypotension stable 5. S/p remote ppm 6. Delirium 7. Hypernatremia with bettye due to low po intake REC Olanzapine at hs daily PRn olanzapine COnt to encourange po intake Keep mag more than 2 Will follow Needs str and ltr Prog poor to guarded
[2016-04-21 14:29] VITALS: BP 100/58
[2016-04-22 06:54] VITALS: BP 156/84
--- NOTE | 2016-04-22 08:17 | PN- Housestaff ---
ANTHONY PATEL,[facility] 04/22/16 0816: Subjective Follow-up For: worsening dementia, delirium Subjective: Patient was seen today, he is agitated, kicking the nurse, currently in Netbed. Vital signs are stable. Review of Systems Constitutional: Reports: see HPI. Objective Last 24 Hrs of Vital Signs/I&O Vital Signs Date Time Temp Pulse Resp B/P Pulse O2 O2 Flow FiO2 Ox Delivery Rate 04/22 0654 98.2 87 20 156/84 99 Room Air 04/21 1429 97.7 81 20 100/58 98 Room Air 04/21 1147 Room Air Room Air Intake & Output 04/22 1600 04/22 0800 04/22 0000 Intake Total 150 480 Output Total Balance 150 480 Intake, Oral 150 480 Number 1 3 Bowel Movements Physical Exam General Appearance: Alert, No Acute Distress Skin: No Rashes HEENT: Atraumatic, Mucous Membr. moist/pink Cardiovascular: Regular Rate, Normal S1, Normal S2, No Murmurs Lungs: Clear to Auscultation, Normal Air Movement Abdomen: Normal Bowel Sounds, Soft, No Tenderness Neurological: Strength at 5/5 X4 Ext, Normal Tone Extremities: No Clubbing, No Cyanosis, No Edema, Normal Pulses Assessment/Plan Assessment: 75-year-old gentleman with a PMH of Alzheimer's disease, ischemic cardiomyopathy S/P pacemaker and AICD implantation, left axillary mass S/P resection in 2013, gastric erosion/mild esophagitis on EGD in 2011, recurrent: CHRIS/PE anterior resection was brought in by family members out of concern for progressive confusion. CXR: 1. The lungs are hypoinflated. 2. No evidence of pneumonia or congestive heart failure. Head CT: No acute intracranial pathology. Chronic small vessel ischemic disease and volume loss. Problem list and plan: Worsening dementia and acute delirium- resolved, back to his baseline Patient has lost the ability to speak in Czech and now only speaks Frisian, he answers simple questions but mostly what he says is more like a word salad, . Family members have been at bedside and reported his speech is not coherent anymore. Family member reported a bottle of meclizine that was found on unclear how much was in it previously. UA: clear with few RBC and WBC. UC: NG after 2 days. TFTs WNL, vitamin D3 low and B12 is high. Latest H/H 11.4/34.0, WBC 7.6. RPR and lyme titer came back negative. * Avoid benzodiazepines in setting of potential paradoxical agitation * Geriatrics follow-up * Neuro consult placed, recommendations followed. Patient has no acute neurologic process and will need a long-term placement in ECF. * Psych evaluated the patient as well, recommendations followed. * Patient has a net bed due to becoming agitated and fall risk. Continued Zyprexa PRN for agitation * Continue Vitamin D supplementation * Patient is currently in Netbed due to agitation We kept safety monitor order in for during the day, to allow the patient be outside of the net bed at times when he is not agitated. Patient still requires net bed at night, order needs to be put in by night team. Per psychiatry patient benefits the most from geriatric psych. BALAJI on CKD -resolved Patient was found to have elevated Cr and hypernatremia on admission. Etiologies could be dehydration as well as rhabdomyolysis as the patient was agitated and was put on restraints. CK was elevated to 845. Patient received half normal saline IV for the past 48 hours, repeated CK is down to 364 . Patient has been drinking adequately orally. Hypernatremia has resolved, creatinine is back to baseline. Regular diet DVT prophylaxis heparin 5000 units subcutaneous CODE STATUS: DNR/DNI Problem List: 1. Delirium 2. Dementia Pain Ratin Pain Location: None Pain Goal: Pain 4 or less Pain Plan: Mild pain pathway Tomorrow's Labs & Rationales: None SHANNA CALLOWAY MD 04/22/16 1316: Attending MD Review Statement Attending Statement Attending MD Statement: examined this patient, agreed w/resident/PA/COMMUTATOR TESTER, reviewed EMR data (avail), discussed with nursing, amended to note Attending Assessment/Plan: Events of this morning were reviewed. I think at this time it is prudent to ask psychiatry if his Zyprexa could be changed from when necessary to regular administration.
[2016-04-22 14:47] VITALS: BP 140/80
[2016-04-22 22:26] VITALS: BP 138/80
[2016-04-23 06:59] VITALS: BP 150/86
--- NOTE | 2016-04-23 08:16 | PN- Housestaff ---
ANTHONY PATEL,[facility] 04/23/16 0816: Subjective Follow-up For: worsening dementia, delirium Subjective: Patient was seen and examined this morning, he was sitting on the side the bed having breakfast peacefully. No overnight events reported by the nurse. Vital signs are stable. Review of Systems Constitutional: Reports: see HPI. Objective Last 24 Hrs of Vital Signs/I&O Vital Signs Date Time Temp Pulse Resp B/P Pulse O2 O2 Flow FiO2 Ox Delivery Rate 04/23 0659 98.0 74 18 150/86 99 Room Air 04/22 2226 97.9 75 20 138/80 100 Room Air 04/22 1447 98.0 87 20 140/80 98 Intake & Output 04/23 1600 04/23 0800 04/23 0000 Intake Total 100 100 Output Total Balance 100 100 Intake, Oral 100 100 Physical Exam General Appearance: Alert, Cooperative, No Acute Distress Skin: No Rashes, No Breakdown, No Significant Lesion HEENT: Atraumatic, EOMI, Mucous Membr. moist/pink Neck: Supple Cardiovascular: Regular Rate, Normal S1, Normal S2, No Murmurs Lungs: Clear to Auscultation, Normal Air Movement Abdomen: Normal Bowel Sounds, Soft, No Tenderness Neurological: Normal Gait, Strength at 5/5 X4 Ext, Normal Tone, Sensation Intact , Cranial Nerves 3-12 NL, Reflexes 2+ Extremities: No Clubbing, No Cyanosis, No Edema, Normal Pulses Assessment/Plan Assessment: 75-year-old gentleman with a PMH of Alzheimer's disease, ischemic cardiomyopathy S/P pacemaker and AICD implantation, left axillary mass S/P resection in 2013, gastric erosion/mild esophagitis on EGD in 2011, recurrent: CHRIS/PE anterior resection was brought in by family members out of concern for progressive confusion. CXR: 1. The lungs are hypoinflated. 2. No evidence of pneumonia or congestive heart failure. Head CT: No acute intracranial pathology. Chronic small vessel ischemic disease and volume loss. Problem list and plan: Worsening dementia and acute delirium- resolved, back to his baseline Patient has lost the ability to speak in Indonesian and now only speaks Swedish, he answers simple questions but mostly what he says is more like a word salad, . Family members have been at bedside and reported his speech is not coherent anymore. Family member reported a bottle of meclizine that was found on unclear how much was in it previously. UA: clear with few RBC and WBC. UC: NG after 2 days. TFTs WNL, vitamin D3 low and B12 is high. Latest H/H 11.4/34.0, WBC 7.6. RPR and lyme titer came back negative. * Avoid benzodiazepines in setting of potential paradoxical agitation * Geriatrics follow-up * Neuro consult placed, recommendations followed. Patient has no acute neurologic process and will need a long-term placement in ECF. * Psych evaluated the patient as well, recommendations followed. * Patient has a net bed due to becoming agitated and fall risk. Continued Zyprexa PRN for agitation * Will get the psych recommendation regarding Zyprexa, patient may need regular administration instead of PRN as he becomes very competitive to take the medication when he needs it * Continue Vitamin D supplementation We kept safety monitor order in for during the day, to allow the patient be outside of the net bed at times when he is not agitated. Patient still requires net bed at night, order needs to be put in by night team. Per psychiatry patient benefits the most from geriatric psych. BALAJI on CKD -resolved Patient was found to have elevated Cr and hypernatremia on admission. Etiologies could be dehydration as well as rhabdomyolysis as the patient was agitated and was put on restraints. CK was elevated to 845. Patient received half normal saline IV for the past 48 hours, repeated CK is down to 364 . Patient has been drinking adequately orally. Hypernatremia has resolved, creatinine is back to baseline. Regular diet DVT prophylaxis heparin 5000 units subcutaneous CODE STATUS: DNR/DNI Problem List: 1. Dementia Pain Ratin Pain Location: None Pain Goal: Pain 4 or less Pain Plan: Mild pain pathway Tomorrow's Labs & Rationales: None SHANNA CALLOWAY MD 04/23/16 1455: Attending MD Review Statement Attending Statement Attending MD Statement: examined this patient, discuss w/resident/PA/AIRPORT REFUELING HANDLER, agreed w/resident/PA/AIRPORT REFUELING HANDLER, discussed with family, reviewed EMR data (avail), amended to note Attending Assessment/Plan: Mr. Gibson is interacting with family members sitting up in bed. He is in no distress. He is afebrile with stable vital signs. His physical exam is benign. Has not had episodes of agitation since yesterday afternoon per nursing and his sitter. We should continue to follow this patient and hopefully will be able to be able to succeed in obtaining a 24-hour period without agitation and without observation.
[2016-04-23 15:37] VITALS: BP 136/84
--- NOTE | 2016-04-23 19:09 | NUR ---
GOLF BALL SIZED, FIRM, NONTENDER MASS TO LEFT AXILARY NOTED, WELL ROUND, SOFT EDEMATOUS AREAS TO BUE AND BLE. SKIN IS INTACT.
--- NOTE | 2016-04-24 05:00 | NUR ---
PT SLEEPING @ 0400. AT 0430, PT FOUND A WAY TO UNZIP THE NET BED. NO FALLS OR INJURIES OCCURED. PT PLACED BACK INTO NET BED AND ZIPPERS CHECKED.
[2016-04-24 07:06] VITALS: BP 130/80
--- NOTE | 2016-04-24 07:10 | PN- Housestaff ---
Subjective Follow-up For: DEMENTIA Subjective: I saw and examined the patient at bedside today, he is alert and awake, he is combing his hair and smiling when I talk to him, he is talking (although not in clear words) and appears in no distress. Review of Systems Constitutional: Reports: no symptoms. Objective Last 24 Hrs of Vital Signs/I&O Vital Signs Date Time Temp Pulse Resp B/P Pulse O2 O2 Flow FiO2 Ox Delivery Rate 04/24 0706 97.8 96 18 130/80 99 Room Air 04/23 1537 97.7 89 20 136/84 98 Intake & Output 04/24 0800 04/24 0000 04/23 1600 Intake Total 120 240 480 Output Total Balance 120 240 480 Intake, Oral 120 240 480 Number 1 Bowel Movements Physical Exam General Appearance: Alert, Cooperative, No Acute Distress, not oriented to place and time, recognizes family members Skin: there are multiple soft tissue mass-like elsions (lipomas) in the upper extremities, they are subcutaneous, nonerythematous, non-tender, round and soft to touch. HEENT: Atraumatic, EOMI, Mucous Membr. moist/pink Neck: Supple, No JVD Cardiovascular: Normal S1, Normal S2, No Murmurs Lungs: Clear to Auscultation, Normal Air Movement Abdomen: Soft, No Tenderness Neurological: Normal Gait, Normal Tone Extremities: Normal Pulses, No Tenderness/Swelling Vascular: Pulses Symmetrical Current Medications: Current Medications Sig/Kim Start time Last Medication Dose Route Stop Time Status Admin Acetaminophen 650 MG Q6P PRN 04/17 0745 AC PO Cholecalciferol 1,000 IU DAILY 04/18 1115 AC 04/23 PO 1146 Olanzapine 2.5 MG Q8P PRN 04/18 1230 AC 04/24 PO 0443 Last 24 Hrs of Lab/Dyllan Results Last 24 Hrs of Labs/Mics: Laboratory Tests 04/23/16 2315: PT Cancelled, INR Cancelled Assessment/Plan Assessment: 75-year-old gentleman with a PMH of Alzheimer's disease, ischemic cardiomyopathy S/P pacemaker and AICD implantation, left axillary mass S/P resection in 2013, gastric erosion/mild esophagitis on EGD in 2011, who was brought in by family members out of concern for progressive confusion. CXR: Hypoinflated lungs. No evidence of pneumonia or congestive heart failure. Head CT: No acute intracranial pathology. Chronic small vessel ischemic disease and volume loss. Problem list and plan: Worsening dementia and acute delirium- resolved, back to his baseline Patient has gradually lost the ability to speak in Hong Konger since his and only speaks in Guamanian (ntive speaker), he answers simple questions but mostly what he says is more like a word salad. Family members have been at bedside and reported his speech is not coherent anymore. The patient lives alone, and is visited by his family frequently. Family members reported a bottle of meclizine that was found on the floor but unclear how much was in it previously. UA: clear with few RBC and WBC. UC: NG after 2 days. TFTs WNL, vitamin D3 low and B12 is high. Latest H/H 11.4/34.0, WBC 7.6. RPR and lyme titer came back negative. * Avoid benzodiazepines in setting of potential paradoxical agitation * Neuro consult placed, recommendations followed. Patient has no acute neurologic process * Psych evaluated the patient as well, recommendations followed. * Patient has a net bed due to becoming agitated and fall risk. Continued Zyprexa PRN for agitation, may need it as scheduled will obtain psychiatry recomendations. * Patient awaiting placement to an ECF, per psychiatry patient benefits the most from geriatric psych. * Continue Vitamin D supplementation We have kept safety monitor order in to allow the patient be outside the net bed when he is not agitated. If patient requires net bed at night due to agitation, order needs to be put in by night team. BALAJI on CKD -resolved Patient was found to have elevated Cr and hypernatremia on admission. Etiologies could be dehydration as well as rhabdomyolysis as the patient was agitated and was put on restraints. CK was elevated to 845. Patient received half normal saline IV, repeated CK is down to 364. Patient has been drinking adequately orallyand is off IV fluids. Hypernatremia has resolved, creatinine is back to baseline. Regular diet DVT prophylaxis heparin 5000 units subcutaneous CODE STATUS: DNR/DNI Problem List: 1. Dementia 2. CKD (chronic kidney disease) Pain Ratin Pain Location: no pain Pain Goal: Pain 4 or less Pain Plan: tylenol for mild pain Tomorrow's Labs & Rationales: none
--- NOTE | 2016-04-24 09:57 | PN- Pulmonary ---
Subjective HPI/Critical Care Issues: I saw and examined the patient at bedside today, he is alert and awake, and smiling when I talk to him, he is talking (although not in clear words) and appears in no distress. Review of Systems Constitutional: Reports: no symptoms. Objective Current Medications: Current Medications Sig/Kim Start time Last Medication Dose Route Stop Time Status Admin Acetaminophen 650 MG Q6P PRN 04/17 0745 AC PO Cholecalciferol 1,000 IU DAILY 04/18 1115 AC 04/23 PO 1146 Olanzapine 2.5 MG Q8P PRN 04/18 1230 AC 04/24 PO 0443 Vital Signs & I&O Last 24 Hrs of Vitals and I&O: Vital Signs Date Time Temp Pulse Resp B/P Pulse O2 O2 Flow FiO2 Ox Delivery Rate 04/24 0706 97.8 96 18 130/80 99 Room Air 04/23 1537 97.7 89 20 136/84 98 Intake & Output 04/24 1600 04/24 0800 04/24 0000 Intake Total 120 240 Output Total Balance 120 240 Intake, Oral 120 240 Number 1 Bowel Movements Impression/Plan Impression/Plan Impression/Plan: Physical Exam General Appearance: Mild Distress, alert and not oriented, Skin: has several soft tissue masses under the skin on both arms, mobile, circular with regular margins. skin is erythematous on both elbows. 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 CT head and CXR as indicated above Problem list: 1. Progressive dementia 2. Delirium improving 3. CKD stage 4 now creat back to baseline 4. Postural hypotension stable 5. S/p remote ppm 6. Delirium 7. Hypernatremia with bettye due to low po intake REC Olanzapine start daily at noon time PRn olanzapine as well 2.5 q12 prn COnt to encourange po intake Will follow DC bedside sitter and change to groundwater monitoring technician Needs str and ltr Prog poor to guarded
[2016-04-24 14:31] VITALS: BP 150/80
[2016-04-24 22:24] VITALS: BP 134/90
--- NOTE | 2016-04-25 07:29 | PN- Housestaff ---
Subjective Follow-up For: DEMENTIA Complaints: no complaints Subjective: Patient seen and examined at bedside. He was sitting in the reciner having breakfast. he speaks gambian, and so interval history is much limited./ Per nurses, no events overnight. Review of Systems Constitutional: Reports: see HPI. Denies: fever. Cardiovascular: Denies: chest pain. Respiratory: Reports: see HPI. Denies: short of breath. Gastrointestinal: Denies: abdominal pain, nausea, vomiting. Neurological/Psychological: Reports: see HPI. Objective Last 24 Hrs of Vital Signs/I&O Vital Signs Date Time Temp Pulse Resp B/P Pulse O2 O2 Flow FiO2 Ox Delivery Rate 04/24 2224 97.8 83 20 134/90 96 04/24 1431 98.2 86 20 150/80 92 Room Air 04/24 1219 Room Air Room Air Intake & Output 04/25 0800 04/25 0000 04/24 1600 Intake Total 120 500 Output Total Balance 120 500 Intake, IV 0 Intake, Oral 120 500 Number 1 1 Bowel Movements Physical Exam General Appearance: Alert, Cooperative, No Acute Distress HEENT: Atraumatic, PERRLA, EOMI, Mucous Membr. moist/pink Neck: Supple, No JVD Cardiovascular: Regular Rate, Normal S1, Normal S2, No Murmurs Lungs: Clear to Auscultation, Normal Air Movement Abdomen: Normal Bowel Sounds, Soft, No Tenderness Neurological: Normal Speech, Strength at 5/5 X4 Ext, Normal Tone, Sensation Intact, Cranial Nerves 3-12 NL, Reflexes 2+ Extremities: No Clubbing, No Cyanosis, No Edema, Normal Pulses, No Tenderness/ Swelling Current Medications: Current Medications Sig/Kim Start time Last Medication Dose Route Stop Time Status Admin Acetaminophen 650 MG Q6P PRN 04/17 0745 AC PO Cholecalciferol 1,000 IU DAILY 04/18 1115 AC 04/24 PO 1143 Olanzapine 5 MG .STK-MED ONE 04/24 1212 DC PO 04/24 1213 Olanzapine 2.5 MG Q8P PRN 04/18 1230 AC 04/24 PO 2046 Assessment/Plan Assessment: 75-year-old gentleman with a PMH of Alzheimer's disease, ischemic cardiomyopathy S/P pacemaker and AICD implantation, left axillary mass S/P resection in 2013, gastric erosion/mild esophagitis on EGD in 2011, who was brought in by family members out of concern for progressive confusion. CXR: Hypoinflated lungs. No evidence of pneumonia or congestive heart failure. Head CT: No acute intracranial pathology. Chronic small vessel ischemic disease and volume loss. Problem list and plan: Worsening dementia and acute delirium- resolved, back to his baseline Patient has gradually lost the ability to speak in British since his and only speaks in Hungarian (ntive speaker), he answers simple questions but mostly what he says is more like a word salad. Family members have been at bedside and reported his speech is not coherent anymore. The patient lives alone, and is visited by his family frequently. Family members reported a bottle of meclizine that was found on the floor but unclear how much was in it previously. UA: clear with few RBC and WBC. UC: NG after 2 days. TFTs WNL, vitamin D3 low and B12 is high. Latest H/H 11.4/34.0, WBC 7.6. RPR and lyme titer came back negative. * Avoid benzodiazepines in setting of potential paradoxical agitation * Neuro consult placed, recommendations followed. Patient has no acute neurologic process * Psych evaluated the patient as well, recommendations followed. * Patient has a net bed due to becoming agitated and fall risk. Continued Zyprexa PRN for agitation, may need it as scheduled will obtain psychiatry recomendations. * Patient awaiting placement to an ECF, per psychiatry patient benefits the most from geriatric psych. * Continue Vitamin D supplementation BALAJI on CKD -resolved Patient was found to have elevated Cr and hypernatremia on admission. Etiologies could be dehydration as well as rhabdomyolysis as the patient was agitated and was put on restraints. CK was elevated to 845. Patient received half normal saline IV, repeated CK is down to 364. Patient has been drinking adequately orallyand is off IV fluids. Hypernatremia has resolved, creatinine is back to baseline. Regular diet DVT prophylaxis heparin 5000 units subcutaneous CODE STATUS: DNR/DNI Problem List: 1. Dementia Pain Ratin Pain Location: n/a Pain Goal: Remain pain free Pain Plan: tyelnol Tomorrow's Labs & Rationales: n/a
--- NOTE | 2016-04-25 09:40 | PN- Pulmonary ---
Subjective HPI/Critical Care Issues: Patient seen and examined at bedside. He was sitting in the reciner having breakfast. he speaks nepali, and so interval history is much limited./ Per nurses, no events overnight. Review of Systems Constitutional: Reports: see HPI. Denies: fever. Cardiovascular: Denies: chest pain. Respiratory: Reports: see HPI. Denies: short of breath. Gastrointestinal: Denies: abdominal pain, nausea, vomiting. Neurological/Psychological: Reports: see HPI. Objective Current Medications: Current Medications Sig/Kim Start time Last Medication Dose Route Stop Time Status Admin Acetaminophen 650 MG Q6P PRN 04/17 0745 AC PO Cholecalciferol 1,000 IU DAILY 04/18 1115 AC 04/24 PO 1143 Olanzapine 5 MG .STK-MED ONE 04/24 1212 DC PO 04/24 1213 Olanzapine 2.5 MG Q8P PRN 04/18 1230 AC 04/24 PO 2046 Vital Signs & I&O Last 24 Hrs of Vitals and I&O: Vital Signs Date Time Temp Pulse Resp B/P Pulse O2 O2 Flow FiO2 Ox Delivery Rate 04/24 2224 97.8 83 20 134/90 96 04/24 1431 98.2 86 20 150/80 92 Room Air 04/24 1219 Room Air Room Air Intake & Output 04/25 1600 04/25 0800 04/25 0000 Intake Total 120 Output Total Balance 120 Intake, Oral 120 Number 1 Bowel Movements Impression/Plan Impression/Plan Impression/Plan: Physical Exam General Appearance: Mild Distress, alert and not oriented, Skin: has several soft tissue masses under the skin on both arms, mobile, circular with regular margins. skin is erythematous on both elbows. 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 CT head and CXR as indicated above Problem list: 1. Progressive dementia 2. Delirium improving 3. CKD stage 4 now creat back to baseline 4. Postural hypotension stable 5. S/p remote ppm 6. Delirium 7. Hypernatremia with bettye due to low po intake REC start olanzapine 2.5 mg daily in the morning, first dose today PRn olanzapine as well 2.5 q12 prn COnt to encourange po intake Will follow Ok to dc Needs str and ltr Prog poor to guarded
[2016-04-25 14:38] VITALS: BP 160/90
[2016-04-25 22:17] VITALS: BP 130/80
--- NOTE | 2016-04-26 05:54 | PN- Housestaff ---
Subjective Follow-up For: Dementia Subjective: Patient seen and examined. He is seen sitting upright in bed enjoying his breakfast. He appears to be in no acute distress. There is a patient safety monitor at his bedside whom offers no further collateral information. He is speaking only tuvaluan and doesn't appear to be aware that he is doing so. He follows commands however spoken in ivorian. Further subjective complaints are unobtainable. Review of systems is unobtainable. No overnight events reported. Review of Systems Constitutional: Reports: see HPI. Objective Last 24 Hrs of Vital Signs/I&O Vital Signs Date Time Temp Pulse Resp B/P Pulse O2 O2 Flow FiO2 Ox Delivery Rate 04/26 1544 Room Air Room Air 04/26 1541 Room Air Room Air 04/26 1540 Room Air Room Air 04/26 1457 98.4 85 20 120/60 98 04/26 0637 98.2 76 20 132/88 93 Room Air 04/25 2217 98.0 77 20 130/80 98 Room Air Intake & Output 04/26 1600 04/26 0800 04/26 0000 Intake Total 1000 Output Total Balance 1000 Intake, IV 0 Intake, Oral 1000 Physical Exam General Appearance: Alert, Cooperative, No Acute Distress Other Physical Findings: General - well developed, well nourished, elderly man in no acute distress HEENT - NCAT, PERRL, EOMI, anicteric sclera CVS - S1, S2 w/o m/g/r Resp - CTA bilaterally GI - Soft, nontender, nondistended, bowel sounds Neuro - Awake and alert, speaking tuvaluan only but follows commands in ivorian, no obvious neurologic deficits, CN II - XII grossly intact Ext - normal pulses, no cyanosis/clubbing/edema Current Medications: Current Medications Sig/Kim Start time Last Medication Dose Route Stop Time Status Admin Acetaminophen 650 MG Q6P PRN 04/17 0745 AC PO Cholecalciferol 1,000 IU DAILY 04/18 1115 AC 04/26 PO 0856 Olanzapine 2.5 MG DAILY 04/27 1000 AC PO Olanzapine 2.5 MG Q12P PRN 04/26 1430 AC PO Olanzapine 2.5 MG Q8P PRN 04/18 1230 DC 04/26 PO 0856 Assessment/Plan Assessment: Patient continues to require supervision with a patient safety monitor but no longer requires a net bed. He is persistently confused and continues to only speak tuvaluan, however he appears to be in no acute distress. Patient is pending placecment in a technician terminal and repeater facility. Alzheimer's Disease Patient has gradually lost the ability to speak in Hungarian since his and only speaks in Libyan (ntive speaker), he answers simple questions but mostly what he says is more like a word salad. Family members have been at bedside and reported his speech is not coherent anymore. The patient lives alone, and is visited by his family frequently. Family members reported a bottle of meclizine that was found on the floor but unclear how much was in it previously. UA: clear with few RBC and WBC. UC: NG after 2 days. TFTs WNL, vitamin D3 low and B12 is high. Latest H/H 11.4/34.0, WBC 7.6. RPR and lyme titer came back negative. -General Medicine -Avoid Delerium trigger -Olanzapine 2.5mg PO Daily -Olanzapine 2.5mg PO Q12H PRN - agitation -Vitamin D 1,000 IU PO Daily -Neuro consult -Psych consult -Pending ECF placement BALAJI on CKD -resolved Patient was found to have elevated Cr and hypernatremia on admission. Etiologies could be dehydration as well as rhabdomyolysis as the patient was agitated and was put on restraints. CK was elevated to 845. Patient received half normal saline IV, repeated CK is down to 364. Patient has been drinking adequately orallyand is off IV fluids. Hypernatremia has resolved, creatinine is back to baseline. Pain Plan- Acetaminophen Diet- Regular diet DVT prophylaxis heparin 5000 units subcutaneous CODE STATUS- DNR/DNI Problem List: 1. Dementia Pain Ratin Pain Location: None Pain Goal: Remain pain free Pain Plan: As noted in plan Tomorrow's Labs & Rationales: None
[2016-04-26 06:37] VITALS: BP 132/88
--- NOTE | 2016-04-26 09:40 | PN- Pulmonary ---
Subjective HPI/Critical Care Issues: Sleeping comfortably Still has sig confusion Afebrile Objective Current Medications: Current Medications Sig/Kim Start time Last Medication Dose Route Stop Time Status Admin Acetaminophen 650 MG Q6P PRN 04/17 0745 AC PO Cholecalciferol 1,000 IU DAILY 04/18 1115 AC 04/26 PO 0856 Olanzapine 2.5 MG Q8P PRN 04/18 1230 AC 04/26 PO 0856 Vital Signs & I&O Last 24 Hrs of Vitals and I&O: Vital Signs Date Time Temp Pulse Resp B/P Pulse O2 O2 Flow FiO2 Ox Delivery Rate 04/26 0637 98.2 76 20 132/88 93 Room Air 04/25 2217 98.0 77 20 130/80 98 Room Air 04/25 1438 98.1 75 20 160/90 100 Room Air Impression/Plan Impression/Plan Impression/Plan: Physical Exam General Appearance: Mild Distress, alert and not oriented, Skin: has several soft tissue masses under the skin on both arms, mobile, circular with regular margins. skin is erythematous on both elbows. 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 CT head and CXR as indicated above Problem list: 1. Progressive dementia 2. Delirium improving 3. CKD stage 4 now creat back to baseline 4. Postural hypotension stable 5. S/p remote ppm 6. Delirium 7. Hypernatremia with bettye due to low po intake REC Change olanzapine to 2.5 mg qam daily (Standing dose qd) PRn olanzapine as well 2.5 q12 prn COnt to encourange po intake Will follow Ok to dc Needs str and ltr Prog poor to guarded
[2016-04-26 14:57] VITALS: BP 120/60
[2016-04-26 22:53] VITALS: BP 128/70
[2016-04-27 06:28] VITALS: BP 144/72
[2016-04-27 06:29] VITALS: BP 104/68
[2016-04-27 06:31] VITALS: BP 142/78
--- NOTE | 2016-04-27 07:15 | PN- Housestaff ---
Subjective Follow-up For: Dementia Subjective: Patient seen and examined. He is seen standing at his bedside adjusting the sheets on his bed. He appears to be in no acute distress. Present in the room as a patient safety monitor whom offers no further collateral information. Patient continues to speak only in Sri Lankan, however follows simple commands in Wallisian. Further subjective complaints are unobtainable. Review of systems is unobtainable. No overnight events reported. Review of Systems Constitutional: Reports: see HPI. Objective Last 24 Hrs of Vital Signs/I&O Vital Signs Date Time Temp Pulse Resp B/P Pulse O2 O2 Flow FiO2 Ox Delivery Rate 04/28 627 97.9 79 20 144/72 97 Room Air 04/26 2253 98.1 74 20 128/70 98 04/26 1544 Room Air Room Air 04/26 1541 Room Air Room Air 04/26 1540 Room Air Room Air 04/26 1457 98.4 85 20 120/60 98 Intake & Output 04/27 1600 04/27 0800 04/27 0000 Intake Total 125 Output Total Balance 125 Intake, Oral 125 Number 1 Bowel Movements Physical Exam General Appearance: Alert, Cooperative, No Acute Distress Other Physical Findings: General - well developed, well nourished, elderly man in no acute distress HEENT - NCAT, PERRL, EOMI, anicteric sclera CVS - S1, S2 w/o m/g/r Resp - CTA bilaterally GI - Soft, nontender, nondistended, bowel sounds Neuro - Awake and alert, speaking citizen of [place] only but follows commands in setswana, no obvious neurologic deficits, CN II - XII grossly intact Ext - normal pulses, no cyanosis/clubbing/edema Current Medications: Current Medications Sig/Kim Start time Last Medication Dose Route Stop Time Status Admin Acetaminophen 650 MG Q6P PRN 04/17 0745 AC PO Cholecalciferol 1,000 IU DAILY 04/18 1115 AC 04/27 PO 0910 Olanzapine 2.5 MG DAILY 04/27 1000 AC 04/27 PO 0910 Olanzapine 2.5 MG Q12P PRN 04/26 1430 AC PO Olanzapine 2.5 MG Q8P PRN 04/18 1230 DC 04/26 PO 0856 Assessment/Plan Assessment: Patient continues to require a patient safety monitor as he is impulsive, however he is pleasant and appropriate and not a danger to himself or others. He has not required his net bed for patient safety and >48 hours. Bed search is still pending for termite helper placement. Alzheimer's Disease Patient has gradually lost the ability to speak in Wallisian since his and only speaks in Sri Lankan (ntive speaker), he answers simple questions but mostly what he says is more like a word salad. Family members have been at bedside and reported his speech is not coherent anymore. The patient lives alone, and is visited by his family frequently. Family members reported a bottle of meclizine that was found on the floor but unclear how much was in it previously. UA: clear with few RBC and WBC. UC: NG after 2 days. TFTs WNL, vitamin D3 low and B12 is high. Latest H/H 11.4/34.0, WBC 7.6. RPR and lyme titer came back negative. -General Medicine -Avoid Delerium triggers -Olanzapine 2.5mg PO Daily -Olanzapine 2.5mg PO Q12H PRN - agitation -Vitamin D 1,000 IU PO Daily -Neuro consult -Psych consult -Pending ECF placement BALAJI on CKD -resolved Patient was found to have elevated Cr and hypernatremia on admission. Etiologies could be dehydration as well as rhabdomyolysis as the patient was agitated and was put on restraints. CK was elevated to 845. Patient received half normal saline IV, repeated CK is down to 364. Patient has been drinking adequately orallyand is off IV fluids. Hypernatremia has resolved, creatinine is back to baseline. Pain Plan- Acetaminophen Diet- Regular diet DVT prophylaxis heparin 5000 units subcutaneous CODE STATUS- DNR/DNI Problem List: 1. Dementia Pain Ratin Pain Location: None Pain Goal: Remain pain free Pain Plan: As noted in plan Tomorrow's Labs & Rationales: None
[2016-04-27] MEDS ORDERED: OLANZAPINE2.5 M1 PO ×2 (08:29)
[2016-04-27] MEDS ORDERED: VITAMIN D31000 UNI2 PO (08:29)
--- NOTE | 2016-04-27 12:47 | PN- Pulmonary ---
Subjective HPI/Critical Care Issues: no acute distress. Present in the room as a patient safety monitor whom offers no further collateral information. Patient continues to speak only in Tanzanian, however follows simple commands in Burkinan. Further subjective complaints are unobtainable. Review of systems is unobtainable. No overnight events reported. Review of Systems Constitutional: Reports: see HPI. Objective Current Medications: Current Medications Sig/Kim Start time Last Medication Dose Route Stop Time Status Admin Acetaminophen 650 MG Q6P PRN 04/17 0745 AC PO Cholecalciferol 1,000 IU DAILY 04/18 1115 AC 04/27 PO 0910 Olanzapine 2.5 MG DAILY 04/27 1000 AC 04/27 PO 0910 Olanzapine 2.5 MG Q12P PRN 04/26 1430 AC PO Olanzapine 2.5 MG Q8P PRN 04/18 1230 DC 04/26 PO 0856 Vital Signs & I&O Last 24 Hrs of Vitals and I&O: Vital Signs Date Time Temp Pulse Resp B/P Pulse O2 O2 Flow FiO2 Ox Delivery Rate 04/27 0628 97.9 79 20 144/72 97 Room Air 04/26 2253 98.1 74 20 128/70 98 04/26 1544 Room Air Room Air 04/26 1541 Room Air Room Air 04/26 1540 Room Air Room Air 04/26 1457 98.4 85 20 120/60 98 Intake & Output 04/27 1600 04/27 0800 04/27 0000 Intake Total 125 Output Total Balance 125 Intake, Oral 125 Number 1 Bowel Movements Impression/Plan Impression/Plan Impression/Plan: Physical Exam General Appearance: Mild Distress, alert and not oriented, Skin: has several soft tissue masses under the skin on both arms, mobile, circular with regular margins. skin is erythematous on both elbows. 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 CT head and CXR as indicated above Problem list: 1. Progressive dementia 2. Delirium improving 3. CKD stage 4 now creat back to baseline 4. Postural hypotension stable 5. S/p remote ppm 6. Delirium 7. Hypernatremia with bettye due to low po intake REC Change olanzapine to 2.5 mg qam daily (Standing dose qd) PRn olanzapine as well 2.5 q12 prn COnt to encourange po intake Will follow Ok to dc Needs str and ltr Prog poor to guarded
[2016-04-27 14:31] VITALS: BP 144/74
--- NOTE | 2016-04-28 07:31 | PN- Housestaff ---
Subjective Follow-up For: Dementia Subjective: Patient seen and examined. He is seen sitting in his chair at bedside enjoying his breakfast. He appears to be in no acute distress. He continues to speak only in bangladeshi. Further subjective complaints are unobtainable. Review of systems is unobtainable. No overnight events reported. Review of Systems Constitutional: Reports: see HPI. Objective Last 24 Hrs of Vital Signs/I&O Vital Signs Date Time Temp Pulse Resp B/P Pulse O2 O2 Flow FiO2 Ox Delivery Rate 04/28 1432 97.2 74 20 136/68 98 04/28 1222 Room Air Room Air 04/28 1221 Room Air Room Air Intake & Output 04/28 1600 04/28 0800 04/28 0000 Intake Total 800 1000 Output Total Balance 800 1000 Intake, IV 0 Intake, Oral 800 1000 Number 1 Bowel Movements Physical Exam General Appearance: Alert, Cooperative, No Acute Distress Other Physical Findings: General - well developed, well nourished, elderly man in no acute distress HEENT - NCAT, PERRL, EOMI, anicteric sclera CVS - S1, S2 w/o m/g/r Resp - CTA bilaterally GI - Soft, nontender, nondistended, bowel sounds Neuro - Awake and alert, speaking bangladeshi only but follows commands in [place] to[place], no obvious neurologic deficits, CN II - XII grossly intact Ext - normal pulses, no cyanosis/clubbing/edema Current Medications: Current Medications Sig/Kim Start time Last Medication Dose Route Stop Time Status Admin Acetaminophen 650 MG Q6P PRN 04/17 0745 AC PO Cholecalciferol 1,000 IU DAILY 04/18 1115 AC 04/28 PO 1230 Olanzapine 2.5 MG DAILY 04/27 1000 AC 04/28 PO 1230 Olanzapine 2.5 MG Q12P PRN 04/26 1430 AC 04/27 PO 1457 Assessment/Plan Assessment: Patient is doing well without a netbed or patient safety monitor and is tolerating his olazapine well without any side effects. He is pending bed placement in a extermination inspector facility for further care. Alzheimer's Disease Patient has gradually lost the ability to speak in Guamanian since his and only speaks in Scottish (ntive speaker), he answers simple questions but mostly what he says is more like a word salad. Family members have been at bedside and reported his speech is not coherent anymore. The patient lives alone , and is visited by his family frequently. Family members reported a bottle of meclizine that was found on the floor but unclear how much was in it previously. UA: clear with few RBC and WBC. UC: NG after 2 days. TFTs WNL, vitamin D3 low and B12 is high. Latest H/H 11.4/34.0, WBC 7.6. RPR and lyme titer came back negative. -General Medicine -Avoid Delerium triggers -Olanzapine 2.5mg PO Daily -Olanzapine 2.5mg PO Q12H PRN - agitation -Vitamin D 1,000 IU PO Daily -Neuro consult -Psych consult -Pending ECF placement BALAJI on CKD -resolved Patient was found to have elevated Cr and hypernatremia on admission. Etiologies could be dehydration as well as rhabdomyolysis as the patient was agitated and was put on restraints. CK was elevated to 845. Patient received half normal saline IV, repeated CK is down to 364. Patient has been drinking adequately orallyand is off IV fluids. Hypernatremia has resolved, creatinine is back to baseline. Pain Plan- Acetaminophen Diet- Regular diet DVT prophylaxis heparin 5000 units subcutaneous CODE STATUS- DNR/DNI Problem List: 1. Delirium 2. Dementia Pain Ratin Pain Location: None Pain Goal: Remain pain free Pain Plan: As noted in plan Tomorrow's Labs & Rationales: None
--- NOTE | 2016-04-28 13:37 | PN- Pulmonary ---
Subjective HPI/Critical Care Issues: however he is pleasant and appropriate and not a danger to himself or others. He has not required his net bed for patient safety and >48 hours. Bed search is still pending for medical records coordinator placement. Objective Current Medications: Current Medications Sig/Kim Start time Last Medication Dose Route Stop Time Status Admin Acetaminophen 650 MG Q6P PRN 04/17 0745 AC PO Cholecalciferol 1,000 IU DAILY 04/18 1115 AC 04/28 PO 1230 Olanzapine 2.5 MG DAILY 04/27 1000 AC 04/28 PO 1230 Olanzapine 2.5 MG Q12P PRN 04/26 1430 AC 04/27 PO 1457 Vital Signs & I&O Last 24 Hrs of Vitals and I&O: Vital Signs Date Time Temp Pulse Resp B/P Pulse O2 O2 Flow FiO2 Ox Delivery Rate 04/28 1222 Room Air Room Air 04/28 1221 Room Air Room Air 04/27 1431 96.6 78 20 144/74 99 Room Air Intake & Output 04/28 1600 04/28 0800 04/28 0000 Intake Total 1000 Output Total Balance 1000 Intake, Oral 1000 Impression/Plan Impression/Plan Impression/Plan: Physical Exam General Appearance: Mild Distress, alert and not oriented, Skin: has several soft tissue masses under the skin on both arms, mobile, circular with regular margins. skin is erythematous on both elbows. 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 CT head and CXR as indicated above Problem list: 1. Progressive dementia 2. Delirium improving 3. CKD stage 4 now creat back to baseline 4. Postural hypotension stable 5. S/p remote ppm 6. Delirium 7. Hypernatremia with bettye due to low po intake REC Olanzapine to 2.5 mg qam daily (Standing dose qd) PRn olanzapine as well 2.5 q12 prn COnt to encourange po intake Will follow Ok to dc Needs str and ltr Prog poor to guarded
[2016-04-28 14:32] VITALS: BP 136/68
[2016-04-28 23:26] VITALS: BP 126/68
[2016-04-29 08:12] VITALS: BP 138/72
--- NOTE | 2016-04-29 08:29 | PN- Housestaff ---
Subjective Follow-up For: Dementia Subjective: Patient seen and examined. He is seen sitting at his bedside resting comfortably. He appears to be in no acute distress his bedside. Reports from nursing staff overnight revealed that he is pleasantly confused but easily reoriented and not any danger to himself or others. He remains persistently confused and is not oriented to person/placed/time. He continues to only speak in Guyanese. Further collateral subjective information is unobtainable from patient. Review of systems is unobtainable. No overnight events reported other than above. Review of Systems Constitutional: Reports: see HPI. Objective Last 24 Hrs of Vital Signs/I&O Vital Signs Date Time Temp Pulse Resp B/P Pulse O2 O2 Flow FiO2 Ox Delivery Rate 04/29 0812 97.0 91 20 138/72 99 Room Air 04/28 2326 82 20 126/68 97 Room Air 04/28 1432 97.2 74 20 136/68 98 04/28 1222 Room Air Room Air 04/28 1221 Room Air Room Air Physical Exam General Appearance: Alert, No Acute Distress Other Physical Findings: General - well developed, well nourished, elderly man in no acute distress HEENT - NCAT, PERRL, EOMI, anicteric sclera CVS - S1, S2 w/o m/g/r Resp - CTA bilaterally GI - Soft, nontender, nondistended, bowel sounds Neuro - Awake and alert, speaking divehi only but follows commands in divehi, no obvious neurologic deficits, CN II - XII grossly intact Ext - normal pulses, no cyanosis/clubbing/edema Current Medications: Current Medications Sig/Kim Start time Last Medication Dose Route Stop Time Status Admin Acetaminophen 650 MG Q6P PRN 04/17 0745 AC PO Cholecalciferol 1,000 IU DAILY 04/18 1115 AC 04/29 PO 0928 Olanzapine 2.5 MG DAILY 04/27 1000 AC 04/29 PO 0928 Olanzapine 2.5 MG Q12P PRN 04/26 1430 AC 04/27 PO 1457 Assessment/Plan Assessment: Patient is doing well without a netbed or patient safety monitor and is tolerating his olazapine well without any side effects. He is pending bed placement in a ferry terminal agent facility for further care. No need for further labs over the weekend. Alzheimer's Disease Patient has gradually lost the ability to speak in Czech since his and only speaks in Guyanese (ntive speaker), he answers simple questions but mostly what he says is more like a word salad. Family members have been at bedside and reported his speech is not coherent anymore. The patient lives alone , and is visited by his family frequently. Family members reported a bottle of meclizine that was found on the floor but unclear how much was in it previously. UA: clear with few RBC and WBC. UC: NG after 2 days. TFTs WNL, vitamin D3 low and B12 is high. Latest H/H 11.4/34.0, WBC 7.6. RPR and lyme titer came back negative. -General Medicine -Avoid Delerium triggers -Olanzapine 2.5mg PO Daily -Olanzapine 2.5mg PO Q12H PRN - agitation -Vitamin D 1,000 IU PO Daily -Neuro consult -Psych consult -Pending ECF placement BALAJI on CKD -resolved Patient was found to have elevated Cr and hypernatremia on admission. Etiologies could be dehydration as well as rhabdomyolysis as the patient was agitated and was put on restraints. CK was elevated to 845. Patient received half normal saline IV, repeated CK is down to 364. Patient has been drinking adequately orallyand is off IV fluids. Hypernatremia has resolved, creatinine is back to baseline. Pain Plan- Acetaminophen Diet- Regular diet DVT prophylaxis heparin 5000 units subcutaneous CODE STATUS- DNR/DNI Problem List: 1. Dementia 2. Delirium Pain Ratin Pain Location: None Pain Goal: Remain pain free Pain Plan: As noted in plan Tomorrow's Labs & Rationales: None
--- NOTE | 2016-04-29 09:34 | PN- Att Addend ---
Attending Addendum Attending Brief Note Covering attending note. Patient is comfortable his sitting out of the bed having breakfast the morning with the sitter. Vital signs are stable. Awake alert S1-S2 is normal Lungs are clear Abdomen is soft nontender bowel sounds are present. Patient been eating and drinking fluids very well. Stable patient awaiting replacement care home facility.
[2016-04-29 14:13] VITALS: BP 130/80
--- NOTE | 2016-04-29 18:52 | NUR ---
1845- PT HAD BM X 3 TODAY. LAST BM LOOSE, BROWN AND LARGE AMOUNT. NO BLOOD. NOT LIQUID. DR. GARLAND NOTIFIED OF ABOVE.
[2016-04-30 07:28] VITALS: BP 132/78
--- NOTE | 2016-04-30 08:28 | PN- Housestaff ---
Subjective Follow-up For: Dementia Subjective: Patient was seen and examined today, vital signs are stable, no new complaints, no overnight events reported by the nurse. Review of Systems Constitutional: Reports: see HPI. Objective Last 24 Hrs of Vital Signs/I&O Vital Signs Date Time Temp Pulse Resp B/P Pulse O2 O2 Flow FiO2 Ox Delivery Rate 04/30 1407 97.4 76 20 122/86 99 Room Air 04/30 0728 97.7 85 20 132/78 97 Room Air Intake & Output 04/30 1600 04/30 0800 04/30 0000 Intake Total 480 120 240 Output Total Balance 480 120 240 Intake, Oral 480 120 240 Number 1 1 Bowel Movements Physical Exam General Appearance: Alert, Cooperative, No Acute Distress Skin: No Rashes, No Breakdown, No Significant Lesion HEENT: Atraumatic, PERRLA, EOMI, Mucous Membr. moist/pink Neck: Supple Cardiovascular: Regular Rate, Normal S1, Normal S2, No Murmurs Lungs: Clear to Auscultation, Normal Air Movement Abdomen: Normal Bowel Sounds, Soft, No Tenderness Neurological: Normal Gait, Normal Speech, Strength at 5/5 X4 Ext, Normal Tone, Sensation Intact, Cranial Nerves 3-12 NL, Reflexes 2+ Extremities: No Clubbing, No Cyanosis, No Edema, Normal Pulses Assessment/Plan Assessment: Patient is doing well without a netbed or patient safety monitor and is tolerating his olazapine well without any side effects. He is pending bed placement in a rn long term care facility for further care. No need for further labs over the weekend. Alzheimer's Disease Patient has gradually lost the ability to speak in Sinhala since his and only speaks in Kazakh (ntive speaker), he answers simple questions but mostly what he says is more like a word salad. Family members have been at bedside and reported his speech is not coherent anymore. The patient lives alone , and is visited by his family frequently. Family members reported a bottle of meclizine that was found on the floor but unclear how much was in it previously. UA: clear with few RBC and WBC. UC: NG after 2 days. TFTs WNL, vitamin D3 low and B12 is high. Latest H/H 11.4/34.0, WBC 7.6. RPR and lyme titer came back negative. -General Medicine -Avoid Delerium triggers -Olanzapine 2.5mg PO Daily -Olanzapine 2.5mg PO Q12H PRN - agitation -Vitamin D 1,000 IU PO Daily -Neuro consult -Psych consult -Pending ECF placement BALAJI on CKD -resolved Patient was found to have elevated Cr and hypernatremia on admission. Etiologies could be dehydration as well as rhabdomyolysis as the patient was agitated and was put on restraints. CK was elevated to 845. Patient received half normal saline IV, repeated CK is down to 364. Patient has been drinking adequately orallyand is off IV fluids. Hypernatremia has resolved, creatinine is back to baseline. Pain Plan- Acetaminophen Diet- Regular diet DVT prophylaxis heparin 5000 units subcutaneous CODE STATUS- DNR/DNI Patient is waiting for placement Problem List: 1. Dementia Pain Ratin Pain Location: None Pain Goal: Pain 4 or less Pain Plan: Mild pain pathway Tomorrow's Labs & Rationales: None
--- NOTE | 2016-04-30 09:24 | PN- Att Addend ---
Attending Addendum Attending Brief Note Covering attending note. Patient is stable no change in his condition. Vital Signs Date Time Temp Pulse Resp B/P Pulse O2 O2 Flow FiO2 Ox Delivery Rate 04/30 0728 97.7 85 20 132/78 97 Room Air 04/29 1413 97.6 85 20 130/80 100 Room Air Intake & Output 04/30 1600 04/30 0800 04/30 0000 Intake Total 120 240 Output Total Balance 120 240 Intake, Oral 120 240 Number 1 Bowel Movements Patient is awake alert S1 is normal Lungs are clear Abdomen is soft nontender bowel sounds are present. Plan is continue current management patient awaiting short-term rehabilitation.
[2016-04-30 14:07] VITALS: BP 122/86
[2016-04-30 21:09] VITALS: BP 120/60
[2016-05-01 06:45] VITALS: BP 124/60
--- NOTE | 2016-05-01 07:04 | PN- Housestaff ---
Subjective Follow-up For: Dementia Subjective: Patient seen and examined. He is seen sitting upright in his chair at bedside resting comfortably. He appears to be in no acute distress. He remains confused at baseline, not oriented to person/place/time, and communicates only in Polish despite being reportedly fluent in Azeri at baseline. Review of Symptoms is unobtainable. No overnight events reported. Review of Systems Constitutional: Reports: see HPI. Objective Last 24 Hrs of Vital Signs/I&O Vital Signs Date Time Temp Pulse Resp B/P Pulse O2 O2 Flow FiO2 Ox Delivery Rate 05/01 1009 Room Air Room Air 05/01 0645 97.6 75 20 124/60 98 Room Air 04/30 2109 98.0 100 19 120/60 96 04/30 1407 97.4 76 20 122/86 99 Room Air Intake & Output 05/01 1600 05/01 0800 05/01 0000 Intake Total 660 120 Output Total Balance 660 120 Intake, Oral 660 120 Physical Exam General Appearance: Alert, No Acute Distress Other Physical Findings: General - well developed, well nourished, elderly man in no acute distress HEENT - NCAT, PERRL, EOMI, anicteric sclera CVS - S1, S2 w/o m/g/r Resp - CTA bilaterally GI - Soft, nontender, nondistended, bowel sounds Neuro - Awake and alert, speaking norwegian only but follows commands in thai, no obvious neurologic deficits, CN II - XII grossly intact Ext - normal pulses, no cyanosis/clubbing/edema Current Medications: Current Medications Sig/Kim Start time Last Medication Dose Route Stop Time Status Admin Acetaminophen 650 MG Q6P PRN 04/17 0745 AC PO Cholecalciferol 1,000 IU DAILY 04/18 1115 AC 05/01 PO 0737 Olanzapine 2.5 MG DAILY 04/27 1000 AC 05/01 PO 0737 Olanzapine 2.5 MG Q12P PRN 04/26 1430 AC 05/01 PO 0111 Assessment/Plan Assessment: Patient continues to do well without a patient safety monitor or that bad over the weekend and continues to tolerate his olanzapine medication well without any obvious side effects. He is pending evaluation/placement for long-term placement. Alzheimer's Disease Patient has gradually lost the ability to speak in Azeri since his and only speaks in Polish (ntive speaker), he answers simple questions but mostly what he says is more like a word salad. Family members have been at bedside and reported his speech is not coherent anymore. The patient lives alone , and is visited by his family frequently. Family members reported a bottle of meclizine that was found on the floor but unclear how much was in it previously. UA: clear with few RBC and WBC. UC: NG after 2 days. TFTs WNL, vitamin D3 low and B12 is high. Latest H/H 11.4/34.0, WBC 7.6. RPR and lyme titer came back negative. -General Medicine -Avoid Delerium triggers -Olanzapine 2.5mg PO Daily -Olanzapine 2.5mg PO Q12H PRN - agitation -Vitamin D 1,000 IU PO Daily -Neuro consult -Psych consult -Pending ECF placement BALAJI on CKD -resolved Patient was found to have elevated Cr and hypernatremia on admission. Etiologies could be dehydration as well as rhabdomyolysis as the patient was agitated and was put on restraints. CK was elevated to 845. Patient received half normal saline IV, repeated CK is down to 364. Patient has been drinking adequately orallyand is off IV fluids. Hypernatremia has resolved, creatinine is back to baseline. Pain Plan- Acetaminophen Diet- Regular diet DVT prophylaxis heparin 5000 units subcutaneous CODE STATUS- DNR/DNI Problem List: 1. Dementia Pain Ratin Pain Location: None Pain Goal: Remain pain free Pain Plan: As noted in plan Tomorrow's Labs & Rationales: None
--- NOTE | 2016-05-01 11:42 | NUR ---
CANCEL PT FOR TODAY. PT CONFUSED, NOT FOLLOWING COMMANDS. RN INFORMED
--- NOTE | 2016-05-01 13:28 | PN- Pulmonary ---
Subjective HPI/Critical Care Issues: He is seen sitting upright in his chair at bedside resting comfortably. He appears to be in no acute distress. He remains confused at baseline, not oriented to person/place/time, and communicates only in Kazakh despite being reportedly fluent in Mohawk at baseline. Review of Symptoms is unobtainable. No overnight events reported. Review of Systems Constitutional: Reports: see HPI. Objective Current Medications: Current Medications Sig/Kim Start time Last Medication Dose Route Stop Time Status Admin Acetaminophen 650 MG Q6P PRN 04/17 0745 AC PO Cholecalciferol 1,000 IU DAILY 04/18 1115 AC 05/01 PO 0737 Olanzapine 2.5 MG DAILY 04/27 1000 AC 05/01 PO 0737 Olanzapine 2.5 MG Q12P PRN 04/26 1430 AC 05/01 PO 0111 Vital Signs & I&O Last 24 Hrs of Vitals and I&O: Vital Signs Date Time Temp Pulse Resp B/P Pulse O2 O2 Flow FiO2 Ox Delivery Rate 05/01 1009 Room Air Room Air 05/01 0645 97.6 75 20 124/60 98 Room Air 04/30 2109 98.0 100 19 120/60 96 04/30 1407 97.4 76 20 122/86 99 Room Air Intake & Output 05/01 1600 05/01 0800 05/01 0000 Intake Total 660 120 Output Total Balance 660 120 Intake, Oral 660 120 Impression/Plan Impression/Plan Impression/Plan: Physical Exam General Appearance: Mild Distress, alert and not oriented, Skin: has several soft tissue masses under the skin on both arms, mobile, circular with regular margins. skin is erythematous on both elbows. 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 CT head and CXR as indicated above Problem list: 1. Progressive dementia 2. Delirium improving 3. CKD stage 4 now creat back to baseline 4. Postural hypotension stable 5. S/p remote ppm 6. Delirium 7. Hypernatremia with bettye due to low po intake REC Olanzapine to 2.5 mg qam daily (Standing dose qd) PRn olanzapine as well 2.5 q12 prn COnt to encourange po intake Will follow Ok to dc Needs str and ltr Prog poor to guarded
[2016-05-01 14:42] VITALS: BP 132/74
--- NOTE | 2016-05-01 14:49 | NUR ---
Met with patients Alexus kelsey this afternoon to review T-19 application process and assett limitations. Also present was the patients brother and sister in law. Niece Alexus, who also has POA for the patient had been able to access some financial information on patients behalf, and it was determined that the patient was over assetts for T-19 currently. Discussed situation with bottle caser and continuity coordinator. Please call if other social work needs arise.
--- NOTE | 2016-05-01 22:47 | NUR ---
PT REFUSES STAFF TO OBTAIN VITALS. DR POTTS MADE AWARE.
[2016-05-02 06:00] VITALS: BP 138/76
--- NOTE | 2016-05-02 07:36 | PN- Housestaff ---
Subjective Follow-up For: Dementia Subjective: Patient seen and examined. He is seen sitting upright in his chair at bedside resting comfortably enjoying his breakfast. He appears to be in no acute distress. He continues to remain persistently confused at baseline and not oriented to person, place, or time. He is pleasantly confused and continues to only speak in Greenlandic. Review of systems is unobtainable. No overnight events reported. Review of Systems Constitutional: Reports: see HPI. Objective Last 24 Hrs of Vital Signs/I&O Vital Signs Date Time Temp Pulse Resp B/P Pulse O2 O2 Flow FiO2 Ox Delivery Rate 05/02 06 98.1 80 18 138/76 96 Room Air 05/01 1442 97.0 76 18 132/74 97 Room Air 05/01 1349 Room Air Room Air Intake & Output 05/02 1600 05/02 0800 05/02 0000 Intake Total 240 450 Output Total Balance 240 450 Intake, Oral 240 450 Physical Exam General Appearance: Alert, Cooperative, No Acute Distress Other Physical Findings: General - well developed, well nourished, elderly man in no acute distress HEENT - NCAT, PERRL, EOMI, anicteric sclera CVS - S1, S2 w/o m/g/r Resp - CTA bilaterally GI - Soft, nontender, nondistended, bowel sounds Neuro - Awake and alert, speaking persian only but follows commands in urdu, no obvious neurologic deficits, CN II - XII grossly intact Ext - normal pulses, no cyanosis/clubbing/edema Current Medications: Current Medications Sig/Kim Start time Last Medication Dose Route Stop Time Status Admin Acetaminophen 650 MG Q6P PRN 04/17 0745 AC PO Cholecalciferol 1,000 IU DAILY 04/18 1115 AC 05/02 PO 0758 Olanzapine 2.5 MG DAILY 04/27 1000 AC 05/02 PO 0758 Olanzapine 2.5 MG Q12P PRN 04/26 1430 AC 05/01 PO 0111 Assessment/Plan Assessment: Patient continues to do well without any close monitoring. Case management is currently conducting a bed search for long-term placement for the patient. Patient had a site visit from [facility] today, bed offer still pending. He is to be discharged to long-term placement as soon as a bed becomes available. Alzheimer's Disease Patient has gradually lost the ability to speak in Tajik since his and only speaks in Greenlandic (ntive speaker), he answers simple questions but mostly what he says is more like a word salad. Family members have been at bedside and reported his speech is not coherent anymore. The patient lives alone , and is visited by his family frequently. Family members reported a bottle of meclizine that was found on the floor but unclear how much was in it previously. UA: clear with few RBC and WBC. UC: NG after 2 days. TFTs WNL, vitamin D3 low and B12 is high. Latest H/H 11.4/34.0, WBC 7.6. RPR and lyme titer came back negative. -General Medicine -Avoid Delerium triggers -Olanzapine 2.5mg PO Daily -Olanzapine 2.5mg PO Q12H PRN - agitation -Vitamin D 1,000 IU PO Daily -Neuro consult -Psych consult -Pending ECF placement BALAJI on CKD -resolved Patient was found to have elevated Cr and hypernatremia on admission. Etiologies could be dehydration as well as rhabdomyolysis as the patient was agitated and was put on restraints. CK was elevated to 845. Patient received half normal saline IV, repeated CK is down to 364. Patient has been drinking adequately orallyand is off IV fluids. Hypernatremia has resolved, creatinine is back to baseline. Pain Plan- Acetaminophen Diet- Regular diet DVT prophylaxis heparin 5000 units subcutaneous CODE STATUS- DNR/DNI Problem List: 1. Delirium Pain Ratin Pain Location: None Pain Goal: Remain pain free Pain Plan: As noted in plan Tomorrow's Labs & Rationales: None
--- NOTE | 2016-05-02 10:40 | PN- Pulmonary ---
Subjective HPI/Critical Care Issues: Patient continues to do well without a patient safety monitor or that bad over the weekend and continues to tolerate his olanzapine medication well without any obvious side effects. He is pending evaluation/placement for long-term placement. Objective Current Medications: Current Medications Sig/Kim Start time Last Medication Dose Route Stop Time Status Admin Acetaminophen 650 MG Q6P PRN 04/17 0745 AC PO Cholecalciferol 1,000 IU DAILY 04/18 1115 AC 05/02 PO 0758 Olanzapine 2.5 MG DAILY 04/27 1000 AC 05/02 PO 0758 Olanzapine 2.5 MG Q12P PRN 04/26 1430 AC 05/01 PO 0111 Vital Signs & I&O Last 24 Hrs of Vitals and I&O: Vital Signs Date Time Temp Pulse Resp B/P Pulse O2 O2 Flow FiO2 Ox Delivery Rate 05/02 0600 98.1 80 18 138/76 96 Room Air 05/01 1442 97.0 76 18 132/74 97 Room Air 05/01 1349 Room Air Room Air Intake & Output 05/02 1600 05/02 0800 05/02 0000 Intake Total 240 450 Output Total Balance 240 450 Intake, Oral 240 450 Impression/Plan Impression/Plan Impression/Plan: Physical Exam General Appearance: Mild Distress, alert and not oriented, Skin: has several soft tissue masses under the skin on both arms, mobile, circular with regular margins. skin is erythematous on both elbows. 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 CT head and CXR as indicated above Problem list: 1. Progressive dementia 2. Delirium improving 3. CKD stage 4 now creat back to baseline 4. Postural hypotension stable 5. S/p remote ppm 6. Delirium 7. Hypernatremia with bettye due to low po intake REC Cont all meds COnt to encourange po intake Will follow Ok to dc Needs str and ltr Prog poor to guarded
[2016-05-02 14:40] VITALS: BP 128/76
--- NOTE | 2016-05-02 14:45 | NUR ---
Physical Therapy: Pt observed ambulating around unit with [facility] [employer] [facility] and MST. At this time acute skilled PT is not indicated. Pt may benefit from STR and even LTC. Please reconsult if there is a decline in pt's functional mobility status. Thank you.
[2016-05-02 22:39] VITALS: BP 132/86
[2016-05-03 06:31] VITALS: BP 148/76
--- NOTE | 2016-05-03 07:43 | PN- Housestaff ---
Subjective Follow-up For: Dementia Subjective: Patient seen and examined. He is seen sitting in his chair at bedside injuring his breakfast. He appears to be in no acute distress. He continues to only speak Burmese despite being fluent reportedly in Malawian. Review of systems is unobtainable. No overnight events reported. Review of Systems Constitutional: Reports: see HPI. Objective Last 24 Hrs of Vital Signs/I&O Vital Signs Date Time Temp Pulse Resp B/P Pulse O2 O2 Flow FiO2 Ox Delivery Rate 05/03 1404 98.8 98 18 110/90 100 Room Air 05/03 1254 98.4 90 20 148/76 05/03 0631 98.4 90 20 148/76 95 Room Air 05/02 2239 83 20 132/86 99 Room Air Intake & Output 05/03 1600 05/03 0800 05/03 0000 Intake Total 480 150 250 Output Total 400 Balance 80 150 250 Intake, Oral 480 150 250 Output, Urine 400 Physical Exam General Appearance: Alert, No Acute Distress Other Physical Findings: General - well developed, well nourished, elderly man in no acute distress HEENT - NCAT, PERRL, EOMI, anicteric sclera CVS - S1, S2 w/o m/g/r Resp - CTA bilaterally GI - Soft, nontender, nondistended, bowel sounds Neuro - Awake and alert, speaking divehi only but follows commands in thai, no obvious neurologic deficits, CN II - XII grossly intact Ext - normal pulses, no cyanosis/clubbing/edema Current Medications: Current Medications Sig/Kim Start time Last Medication Dose Route Stop Time Status Admin Acetaminophen 650 MG Q6P PRN 04/17 0745 AC PO Cholecalciferol 1,000 IU DAILY 04/18 1115 AC 05/03 PO 0847 Olanzapine 2.5 MG DAILY 04/27 1000 AC 05/03 PO 0847 Olanzapine 2.5 MG Q12P PRN 04/26 1430 AC 05/03 PO 1326 Assessment/Plan Assessment: Case management received offers from multiple facilities today. He is reportedly to be discharged to [place] once an insurance denial letter is received. This was reportedly not received by the end of business today, patient will be kept overnight with an anticipated discharge in the morning. Alzheimer's Disease Patient has gradually lost the ability to speak in Malawian since his and only speaks in Burmese (ntive speaker), he answers simple questions but mostly what he says is more like a word salad. Family members have been at bedside and reported his speech is not coherent anymore. The patient lives alone , and is visited by his family frequently. Family members reported a bottle of meclizine that was found on the floor but unclear how much was in it previously. UA: clear with few RBC and WBC. UC: NG after 2 days. TFTs WNL, vitamin D3 low and B12 is high. Latest H/H 11.4/34.0, WBC 7.6. RPR and lyme titer came back negative. -General Medicine -Avoid Delerium triggers -Olanzapine 2.5mg PO Daily -Olanzapine 2.5mg PO Q12H PRN - agitation -Vitamin D 1,000 IU PO Daily -Neuro consult -Psych consult -Pending ECF placement BALAJI on CKD -resolved Patient was found to have elevated Cr and hypernatremia on admission. Etiologies could be dehydration as well as rhabdomyolysis as the patient was agitated and was put on restraints. CK was elevated to 845. Patient received half normal saline IV, repeated CK is down to 364. Patient has been drinking adequately orallyand is off IV fluids. Hypernatremia has resolved, creatinine is back to baseline. Pain Plan- Acetaminophen Diet- Regular diet DVT prophylaxis heparin 5000 units subcutaneous CODE STATUS- DNR/DNI Problem List: 1. Dementia Pain Ratin Pain Location: None Pain Goal: Remain pain free Pain Plan: See assessment Tomorrow's Labs & Rationales: None
--- NOTE | 2016-05-03 10:12 | PN- Psychiatry ---
Assessment/Plan Impression: See below. Suggestion: See below. Subjective Subjective: Idenitifying information: Patient is a 75-year old male who presented to the ED on 04/14/2016 at 2009 with his niece and [id number] with a chief complaint of worsening confusion. The patient lives alone, and is visited by his family frequently. He is a northway Chadian speaker, but understands and speaks Kazakh. Patient has no known prior psychiatric history. SUBJECTIVE Sleep: nodded head "yes" that he slept well. Appetite: fair OBJECTIVE Mental Status Exam Presentation/Appearance: Minimally engaged in conversation. Did not provide meaningful conversation. Wears Hospital garb. Orientation: Disoriented to place, time, situation. Oriented to person. Sensorium: Awake and alert Eye contact: Appropriate Affect: Somewhat blunted Mood: Stable Depression: denied Anxiety:denied Suicidal ideation: unable to assess d/t mental status Homicidal ideation: unable to assess d/t mental status Thought Process: disorganized Speech: Spoke some Chadian today. Was able to nod head to answer yes/no questions (understands Kazakh). Judgment: poor Insight: poor Cognition: Grossly impaired Memory: Grossly impaired Attention/Concentration: impaired Auditory/Visual hallucinations: denied Objective Last 24 Hrs of Vital Signs/I&O Vital Signs Date Time Temp Pulse Resp B/P Pulse O2 O2 Flow FiO2 Ox Delivery Rate 05/03 0631 98.4 90 20 148/76 95 Room Air 05/02 2239 83 20 132/86 99 Room Air 05/02 1440 98.0 75 20 128/76 97 Intake & Output 05/03 1600 05/03 0800 05/03 0000 Intake Total 150 250 Output Total Balance 150 250 Intake, Oral 150 250 Current Medications: Current Medications Sig/Kim Start time Last Medication Dose Route Stop Time Status Admin Acetaminophen 650 MG Q6P PRN 04/17 0745 AC PO Cholecalciferol 1,000 IU DAILY 04/18 1115 AC 05/03 PO 0847 Olanzapine 2.5 MG DAILY 04/27 1000 AC 05/03 PO 0847 Olanzapine 2.5 MG Q12P PRN 04/26 1430 AC 05/01 PO 0111 Results Last 24 Hrs of Labs/Mics: No new labs in last 24 hours. ASSESSMENT Differential diagnosis Probable Alzheimer's dementia Rule out Lewy body disease IMPRESSION Reviewed chart and progress notes. Patient is a 75-year old male with no formal psychiatric history who presented pleasantly confused on encounter; history suggests a probable diagnosis of Alzheimer's dementia. Per collateral from the patient's niece, patient's mentation appeared close to baseline. He appeared calm, and in good physical and behavioral control on exam. However, he was not able to engage in meaningful conversation. He was oriented to person only. He suggested no imminent risk to harm self or others on exam. Patient is psychiatrically cleared for discharge. PLAN 1. Continue current dose of Zyprexa. Please monitor for EKG changes such as arrythmia or prolonged QT greater than 475. Please monitor electrolytes and replete sodium and magnesium to the upper portion of normal limits. 2. Recommend geriatric psychiatry consult. Thank you for letting us participate in Mr. Gibson's care. We do not anticipate further visits. Please reconsult if other psychiatric matters arise. Fozia Duran, PROPULSION MOTOR AND GENERATOR REPAIRER Pager [phone]
[2016-05-03 12:54] VITALS: BP 148/76
--- NOTE | 2016-05-03 13:56 | PN- Pulmonary ---
Subjective HPI/Critical Care Issues: STABLE PROB DC TODAY Objective Current Medications: Current Medications Sig/Kim Start time Last Medication Dose Route Stop Time Status Admin Acetaminophen 650 MG Q6P PRN 04/17 0745 AC PO Cholecalciferol 1,000 IU DAILY 04/18 1115 AC 05/03 PO 0847 Olanzapine 2.5 MG DAILY 04/27 1000 AC 05/03 PO 0847 Olanzapine 2.5 MG Q12P PRN 04/26 1430 AC 05/03 PO 1326 Vital Signs & I&O Last 24 Hrs of Vitals and I&O: Vital Signs Date Time Temp Pulse Resp B/P Pulse O2 O2 Flow FiO2 Ox Delivery Rate 05/03 1254 98.4 90 20 148/76 05/03 0631 98.4 90 20 148/76 95 Room Air 05/02 2239 83 20 132/86 99 Room Air 05/02 1440 98.0 75 20 128/76 97 Intake & Output 05/03 1600 05/03 0800 05/03 0000 Intake Total 150 250 Output Total Balance 150 250 Intake, Oral 150 250 Impression/Plan Impression/Plan Impression/Plan: Physical Exam General Appearance: Mild Distress, alert and not oriented, Skin: has several soft tissue masses under the skin on both arms, mobile, circular with regular margins. skin is erythematous on both elbows. 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 CT head and CXR as indicated above Problem list: 1. Progressive dementia 2. Delirium improving 3. CKD stage 4 now creat back to baseline 4. Postural hypotension stable 5. S/p remote ppm 6. Delirium 7. Hypernatremia with bettye due to low po intake REC Cont all meds COnt to encourange po intake Will follow Ok to dc Needs str and ltr Prog poor to guarded
[2016-05-03 14:04] VITALS: BP 110/90
[2016-05-03 22:08] VITALS: BP 125/60
[2016-05-04 06:55] VITALS: BP 124/70
--- NOTE | 2016-05-04 07:16 | PN- Housestaff ---
Subjective Follow-up For: Dementia Subjective: Patient seen and examined. He is seen sitting in his chair at bedside injuring his breakfast. He appears to be in no acute distress. He continues to only speak Citizen Of [place] despite being fluent reportedly in Swiss. Review of systems is unobtainable. No overnight events reported. Review of Systems Constitutional: Reports: see HPI. Objective Last 24 Hrs of Vital Signs/I&O Vital Signs Date Time Temp Pulse Resp B/P Pulse O2 O2 Flow FiO2 Ox Delivery Rate 05/04 0844 98.4 90 20 148/76 05/04 0655 98.0 86 20 124/70 98 Room Air 05/03 2208 98.2 90 20 125/60 93 Intake & Output 05/04 1600 05/04 0800 05/04 0000 Intake Total 100 480 Output Total Balance 100 480 Intake, IV 0 Intake, Oral 100 480 Number 0 Bowel Movements Physical Exam General Appearance: Alert, No Acute Distress Other Physical Findings: General - well developed, well nourished, elderly man in no acute distress HEENT - NCAT, PERRL, EOMI, anicteric sclera CVS - S1, S2 w/o m/g/r Resp - CTA bilaterally GI - Soft, nontender, nondistended, bowel sounds Neuro - Awake and alert, speaking palestinian only but follows commands in swedish, no obvious neurologic deficits, CN II - XII grossly intact Ext - normal pulses, no cyanosis/clubbing/edema Current Medications: Current Medications Sig/Kim Start time Last Medication Dose Route Stop Time Status Admin Acetaminophen 650 MG Q6P PRN 04/17 0745 DCD PO Cholecalciferol 1,000 IU DAILY 04/18 1115 DCD 05/04 PO 0933 Olanzapine 2.5 MG DAILY 04/27 1000 DCD 05/04 PO 0933 Olanzapine 2.5 MG Q12P PRN 04/26 1430 DCD 05/04 PO 0140 Assessment/Plan Assessment: Patient needs to only speak Citizen [place] despite being fluent in Swiss at baseline and is not oriented to person/placed/time. Patient is to be discharged today to long-term placement facility. Alzheimer's Disease Patient has gradually lost the ability to speak in Swiss since his and only speaks in Citizen [place] (ntive speaker), he answers simple questions but mostly what he says is more like a word salad. Family members have been at bedside and reported his speech is not coherent anymore. The patient lives alone , and is visited by his family frequently. Family members reported a bottle of meclizine that was found on the floor but unclear how much was in it previously. UA: clear with few RBC and WBC. UC: NG after 2 days. TFTs WNL, vitamin D3 low and B12 is high. Latest H/H 11.4/34.0, WBC 7.6. RPR and lyme titer came back negative. -General Medicine -Avoid Delerium triggers -Olanzapine 2.5mg PO Daily -Olanzapine 2.5mg PO Q12H PRN - agitation -Vitamin D 1,000 IU PO Daily -Neuro consult -Psych consult -Pending ECF placement BALAJI on CKD -resolved Patient was found to have elevated Cr and hypernatremia on admission. Etiologies could be dehydration as well as rhabdomyolysis as the patient was agitated and was put on restraints. CK was elevated to 845. Patient received half normal saline IV, repeated CK is down to 364. Patient has been drinking adequately orallyand is off IV fluids. Hypernatremia has resolved, creatinine is back to baseline. Pain Plan- Acetaminophen Diet- Regular diet DVT prophylaxis heparin 5000 units subcutaneous CODE STATUS- DNR/DNI Problem List: 1. Dementia Pain Ratin Pain Location: None Pain Goal: Remain pain free Pain Plan: See assessment Tomorrow's Labs & Rationales: None
[2016-05-04 08:44] VITALS: BP 148/76
== END 2016-05-04 11:00 | DRG 57 ==
LOC: ENRESERVDT → ENRESERVTM → ERH 19:56 → 2NA 04-16 14:11 → ENPENDDIS 04-16 14:11 → ERHI 04-16 14:11 → 2NA 04-16 16:49
PROVIDERS: Internal Medicine; Ophthalmology; Physician Assistant Medical; ADMIT Internal Medicine
DX: G30.9 Alzheimer's disease, unspecified (principal); N17.9 Acute kidney failure, unspecified; E87.0 Hyperosmolality and hypernatremia; N18.4 Chronic kidney disease, stage 4 (severe); F05 Delirium due to known physiological condition; F02.81 Dementia in other diseases classified elsewhere, unspecified severity, with behavioral disturbance; E86.0 Dehydration; I95.1 Orthostatic hypotension; H40.9 Unspecified glaucoma; Z95.0 Presence of cardiac pacemaker
CPT/HCPCS: 2NAP; 86618; 36415; 80307; 81001; 82436; 87086; 93005; 93010; 97116-GO; 97163-GP; 97164-GP; 97530-GO; J1200; J3490; J7042

== ENCOUNTER 2016-05-08 14:58 | Emergency (ER) | payer OTHER ==
[~2016-05-08] VITALS: Ht 182.9 cm; Wt 79.4 kg
[~2016-05-08 14:58] MED LIST changes: +OLANZAPINE2.5 M1 PO; +VITAMIN D31000 UNI2 PO
--- NOTE | 2016-05-08 16:51 | RADIOLOGY REPORT ---
EXAMINATION: CHEST 1 VIEW CLINICAL INFORMATION: Altered mental status. COMPARISON: 04/14/2016. TECHNIQUE: An AP view of the chest is provided. FINDINGS: The cardiac silhouette is not enlarged. Pacer leads are in unchanged position overlying the right atrium and right ventricle. The mediastinal and hilar contours are unremarkable. There are neither pleural effusions nor pneumothoraces. There are no consolidations. The osseous structures are unremarkable. IMPRESSION: No evidence for acute disease.
[2016-05-08] MEDS ORDERED: MILK OF MA400 MG/52 PO (17:33)
[2016-05-08] MEDS ORDERED: BISACODYL10 M1 RC (17:35)
[2016-05-08] MEDS ORDERED: FLEET ENEMA133 ML RC (17:37)
[2016-05-08] MEDS ORDERED: ACETAMINOPHEN325 M2 PO (17:39)
[2016-05-08] MEDS ORDERED: ACEPHEN650 M1 PR (17:43)
[2016-05-08 17:56] LABS: ABSOLUTE BASOPHIL COUNT 0 /CUMM (0.0-0.2); ABSOLUTE EOSINOPHIL COUNT 0.1 /CUMM (0.0-0.7); ABSOLUTE GRANULOCYTE CT 4.8 /CUMM (1.4-6.5); ABSOLUTE LYMPH COUNT 0.4 /CUMM (1.2-3.4); ABSOLUTE MONOCYTE COUNT 1.1 /CUMM (0.10-0.60); BASOPHIL % 0.2 % (0.0-2.0); EOSINOPHIL % 2.2 % (0-5); GRANULOCYTE % 74.6 % (42.2-75.2); HEMATOCRIT 30.1 % (42-52); MEAN CORPUSCULAR HGB 30.2 PG (27.0-31.0); MEAN CORPUSCULAR HGB CONC 32.9 G/DL (33.0-37.0); MEAN CORPUSCULAR VOLUME 91.8 FL (80.0-94.0); MEAN PLATELET VOLUME 8.5 FL (7.4-10.4); PLATELET COUNT 221 /CUMM (130-400); RBC DISTRIBUTION WIDTH 14.3 % (11.5-14.5); RED BLOOD CELL CT 3.29 /CUMM (4.70-6.10); WHITE BLOOD CELL COUNT 6.4 /CUMM (4.8-10.8)
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
[2016-05-09 14:54] VITALS: BP 161/84
== END 2016-05-09 17:10 | disposition other institution (70) ==
LOC: ERH 14:58
PROVIDERS: Emergency Medicine
DX: F03.90 Unspecified dementia, unspecified severity, without behavioral disturbance, psychotic disturbance, mood disturbance, and anxiety (principal); R45.1 Restlessness and agitation; F03.91 Unspecified dementia, unspecified severity, with behavioral disturbance
CPT/HCPCS: 87184; 81001; 87086; 87147; 96372; 99291; J1630